=== PATIENT | female | born 1950 | race Caucasian/White ===

== ENCOUNTER 2024-06-11 14:12 | Emergency (ER) | payer MEDICARE, SELFPAY ==
[2024-06-11 14:16] VITALS: BP 144/61; PULSE 85; RESP 18; TEMP 36.2; O2SAT 98; BMI 27.3
--- NOTE | 2024-06-11 14:39 | CT_ITS ---
STUDY: CT BRAIN WITHOUT CONTRAST REASON FOR EXAM: Female, 73 years old. headache for few weeks RADIATION DOSAGE (If Supplied By Facility): CTDIvol = ( 44.99 ) mGy, DLP = ( 796.11 ) mGycm TECHNIQUE: Transaxial CT imaging of the brain was performed without administration of intravenous contrast material. Individualized dose optimization techniques were used for this CT. COMPARISON: No relevant priors. FINDINGS: Normal soft tissue structures. Normal calvarium. Calcific plaquing of the cavernous carotids Normal size ventricles and extra-axial spaces for the patient''s age. 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 Normal basal ganglia and thalami. Normal brainstem. Normal cerebellum. There is no intracranial hemorrhage. There are no findings of an acute ischemic infarction. Normal visualized paranasal sinuses. 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
--- NOTE | 2024-06-11 14:40 | EKG12_ITS ---
Test Reason : WEAKNSS Blood Pressure : */* mmHG Vent. Rate : 76 BPM Atrial Rate : 76 BPM P-R Int : 190 ms QRS Dur : 78 ms QT Int : 402 ms P-R-T Axes : 51 16 59 degrees QTcB Int : 452 ms Normal sinus rhythm Cannot rule out Anterior infarct , age undetermined Abnormal ECG Confirmed by Cole Mccormack ([id number]), order editor JOYCE MEDINA ([id number]) on 06/13/2024 10:59:47 AM Referred By: Confirmed By: Coel Mccormack
--- NOTE | 2024-06-11 14:41 | EX.ED.DYSGE1 ---
HPI History of Present Illness Chief Complaint: Headache Narrative Narrative: Patient is a 73-year-old female past medical history of depression, anxiety who presents to the emergency department chief complaint of headache. Patient states that she has had a headache on and off for the past 3 weeks now. She states that she has not seen her family doctor for this. States that it for started on her left side behind her eye and has remained this and she states that she always gets headaches on her left side. Patient denies any recent falls or head injuries. Patient denies any blood thinning medications. Patient states that she took naproxen prior to arrival for her headache. States that things do not improve and therefore she came here for further evaluation management. PFSH PFSH Allergy/AdvReac Type Severity Reaction Status Date / Time Penicillins Allergy Hives Verified 06/11/24 14:16 Social History Smoking Status: Unknown if ever smoked ROS ROS ED ROS Narrative Constitutional: Complains of headache as noted above denies any fevers, chills, lightness, dizziness Eyes: Denies change in vision double vision blurry vision Cardiovascular: Denies chest pain palpitation Respiratory: As denies coughing wheezing shortness of breath Abdomen: Complains of nausea denies any vomiting or diarrhea and denies any abdominal pain : Denies any urinary symptoms Neurological: Denies any numbness, weakness, tingling Musculoskeletal: Denies back pain Skin: Denies any rashes or lesions EXAM Physical Exam Narrative Exam Narrative: General: Patient lying in bed rest comfortably did not appear to be acute distress Head: Atraumatic, normocephalic Eyes: PERRL bilateral, EOMI bilateral, no conjunctival injection noted Neck: Soft, supple, trach Cardiovascular: Regular rate and rhythm no murmurs gallops rubs noted Respiratory: Clear to auscultation bilaterally no rales rhonchi or wheezes noted Abdomen: Soft, nondistended, nontender to palpation, bowel sounds present x 4 Extremities: +5/5 strength noted in the bilateral upper and lower extremities, no pedal edema on exam, radial pulses +2/4 in the bilateral upper extremities Neurological: Patient following commands knew that she was at [facility] year is 2023. Patient completed finger-nose test bilaterally for any difficulty. NIH of 0 GCS 15 Skin: Warm, dry, intact Const Vital Signs: 12/03/24 14:16 06/11/24 16:14 Temperature 97.2 F L Temperature Source Temporal Pulse Rate 85 78 Respiratory Rate 18 18 Blood Pressure 144/61 H 132/78 H Blood Pressure Mean 88 96 Pulse Ox 98 97 Oxygen Delivery Method Room Air Room Air MDM MDM MDM Narrative Medical decision making narrative: Patient is a 73-year-old female who presented to the emergency department chief complaint of headache for the past several weeks. States that these headaches are waxing and waning. On the differential diagnose includes but not limited to migraine headache, cluster headache, tension headache, intracranial mass. Once workup is obtained reviewed she will be reevaluated. Patient be given IV fluids, Reglan and Tylenol. Patient's CBC was reviewed and was largely unremarkable no evidence leukocytosis white blood count normal at 5.7, hemoglobin was 14.7, platelet count normal at 268. Patient sodium normal 140, potassium normal 3.9, creatinine was 1.03 there is nothing to compare to based on previous blood draws as there is no other blood draws to compare to, AST and ALT were [address] head and brain without contrast was reviewed showed small old bilateral parietal lobe infarcts no evidence for obstructive hydrocephalus mass or acute bleed. Patient's EKG was reviewed and independently interpreted by myself which showed sinus rhythm with a rate of 76 bpm. On reevaluation of the patient and she is feeling better she would like to go home at this point time. Patient was advised to continue to take Tylenol ibuprofen [id number] for her headache control. She was advised to follow-up with her primary care physician outpatient setting. She is encouraged return with worsening symptoms or concerns. All question concerns answered she was discharged home in stable condition. Lab Data Labs: Laboratory Results - last 24 hr 06/11/24 15:32 WBC 5.7 RBC 4.76 Hgb 14.7 Hct 44.5 MCV 93.5 MCH 30.9 MCHC 33.0 RDW Std Deviation 41.5 RDW Coeff of Joy 12.1 Plt Count 268 MPV 8.2 Immature Gran % (Auto) 0.400 Neut % (Auto) 57.8 Lymph % (Auto) 32.2 Darke % (Auto) 7.6 Eos % (Auto) 1.1 Baso % (Auto) 0.9 Absolute Neuts (auto) 3.3 Absolute Lymphs (auto) 1.83 Nucleated RBC % 0 Sodium 140 Potassium 3.9 Chloride 107 Carbon Dioxide 31.0 Anion Gap 2 L BUN 30 H Creatinine 1.03 H Estim Creat Clear Calc 45.68 Est GFR (MDRD) Af Amer 67 Est GFR (MDRD) Non-Af 56 L BUN/Creatinine Ratio 29.1 H Glucose 99 Calcium 9.7 Total Bilirubin 0.60 AST 17 ALT 26 Alkaline Phosphatase 106 Total Protein 7.7 Albumin 4.4 Globulin 3.3 Albumin/Globulin Ratio 1.3 Radiography Diagnostic Testing: Clinical Impression(s) from Imaging Studies Brain CT 06/11/24 14:39 IMPRESSION: 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 Return with worsening symptoms or other concerns. Use ibuprofen and Tylenol for headache control Ensure adequate hydration with water. Print Language: R[place] Disposition Disposition: Home, Self Care
[2024-06-11] MEDS: 0.9% Normal Saline (1000mL) 1,000 ML 999 ML IV (15:29)
[2024-06-11] MEDS: Acetaminophen 500 MG Tablet 1000 MG PO (15:29)
[2024-06-11] MEDS: Metoclopramide 10 MG/2 ML Vial IV (15:29)
[2024-06-11 15:38] LABS: Absolute Lymphocyte Count 1.83 X10^3/uL (0.83-4.51); Absolute Neutrophil Count 3.3 X10^3/uL (2.0-7.7); Basophil# 0.05 X10^3/uL; Basophil% 0.9 % (0-1); Eosinophil# 0.06 X10^3/uL; Eosinophils% 1.1 % (0-5); Hematocrit 44.5 % (37-47); Hemoglobin 14.7 g/dL (12.0-15.0); Lymphocyte # 1.83 X10^3/ul (0.83-4.51); Lymphocyte % 32.2 % (19-41); Mean Corpuscular Hgb 30.9 pg (27.0-32.0); Mean Corpuscular Volume 93.5 fL (81-99); Mean Platelet Vol. 8.2 fl (6.2-12.0); Monocyte# 0.43 X10^3/uL; Monocyte% 7.6 % (0-10); NRBC Flagged by Analyzer 0 % (0-5); Neutrophil # 3.29 X10^3/uL (2.7-7.7); Neutrophil % 57.8 % (47-70); Platelet Count 268 K/mm3 (150-450); RBC Distribution Width CV 12.1 % (11.6-14.6); RBC Distribution Width SD 41.5 fl (35.1-43.9); Red Blood Count 4.76 M/mm3 (4.2-5.4); White Blood Count 5.7 K/mm3 (4.4-11.0)
[2024-06-11 16:14] VITALS: BP 132/78; PULSE 78; RESP 18; O2SAT 97
[2024-06-11 16:31] LABS: ALB/GLOB Ratio 1.3 RATIO (0.9-2.4); AST(SGOT) 17 U/L (15-37); Alanine Aminotransfer ALT/SGPT 26 U/L (13-56); Albumin, Serum 4.4 g/dL (3.2-5.0); Alkaline Phosphatase 106 U/L (45-117); Anion Gap 2 (5-15); BUN 30 mg/dL (7-18); BUN/Creat Ratio 29.1 RATIO (10-20); Calcium,Total 9.7 mg/dL (8.5-10.1); Chloride 107 mmol/L (98-107); Creatinine, Serum 1.03 mg/dL (0.55-1.02); EST Glomerular Filtration Rate 56 mL/min (>60); Est Glom Filt Rate - Afr Amer 67 mL/min (>60); Estimated Creatinine Clearance 45.68 ml/min; Globulin 3.3 g/dL (2.2-4.2); Glucose 99 mg/dL (74-106); Potassium 3.9 mmol/L (3.5-5.1); Protein, Total 7.7 g/dL (6.4-8.2); Sodium Level 140 mmol/L (136-145)
[2024-06-11 16:44] LABS: Squamous Epithelial Cells - UA 0 SEEN /hpf (5-10)
[2024-06-11 16:53] LABS: Color, Urine Yellow (Yellow); Glucose, Dipstick Normal (Normal); Ketone-Dipstick Negative (Negative); Leukocyte Esterase-Dipstick 25 /ul (Negative); Nitrite-Dipstick Negative (Negative); Occult Blood-Urine 50 /ul (Negative); Protein-Dipstick 30 mg/dl (Negative); Specific Gravity, Urine 1.025 (1.002-1.030); Urine Clarity Clear (Clear); Urine Urobilinogen 1 mg/dl (Normal)
[2024-06-11 16:54] LABS: Urine Bilirubin Dipstick 1 mg/dL (Negative)
[2024-06-11 17:00] LABS: Bacteria 1+ /hpf (None Seen); Mucous, Urine 2+ /hpf (<or=2+); Red Blood Cells-Urine 0-5 SEEN /hpf (0-5); White Blood Cells 0-5 SEEN /hpf (0-5)
[2024-06-11 17:06] VITALS: BP 124/76; PULSE 78; RESP 16; TEMP 37.1; O2SAT 99
== END 2024-06-11 17:07 | disposition home or self-care (01) ==
PROVIDERS: Emergency Provider Emergency Medicine; PCP Nurse Practitioner Family; Visit Provider Emergency Medicine
DX: R51.9 Headache, unspecified (principal); F41.9 Anxiety disorder, unspecified; Z86.73 Personal history of transient ischemic attack (TIA), and cerebral infarction without residual deficits; F32.A Depression, unspecified
CPT/HCPCS: 70450; 80053; 81001; 85025; 93005; 96361; 96374; 99283; A4216

== ENCOUNTER → 2025-03-24 | Outpatient (CLI) | payer MEDICARE, SELFPAY ==
[2025-03-24 18:27] LABS: Ferritin 92 ng/mL (22-378); Iron 96 ug/dL (50-170); Magnesium 2.2 mg/dL (1.5-2.2); Vitamin B12 264 pg/mL (180-914)
[2025-03-26 16:09] LABS: Folate, Hemolysate Test 295.0 ng/mL (Not Estab.); Folate, RBC (Hct) Test 40.3 % (34.0-46.6); Folates, RBC Test 732 ng/mL (>498)
== END | disposition home or self-care (01) ==
LOC: MTLAB 14:19
PROVIDERS: PCP Nurse Practitioner Family; Referring Provider Psychiatry & Neurology Neurology; Visit Provider Psychiatry & Neurology Neurology
DX: G57.93 Unspecified mononeuropathy of bilateral lower limbs (principal); G25.2 Other specified forms of tremor; G25.81 Restless legs syndrome
CPT/HCPCS: 36415; 82607; 82728; 82747; 83540; 83735; 84443; 85014

== ENCOUNTER → 2025-04-04 | Outpatient (CLI) | payer MEDICARE, SELFPAY ==
--- NOTE | 2025-04-04 12:49 | MRI_ITS ---
PROCEDURE: BRAIN W/WO CONTRAST 04/04/2025 REASON FOR EXAM: TREMOR, GEORGE, ATAXIA, PRIOR CVA, FAMILY HX OF PLS TECHNIQUE: Procedure Code: [id number] Modality: MR Procedure: BRAIN W/WO CONTRAST Multiplanar and multisequence images were obtained. COMPARISON: CT dated 06/11/2024. FINDINGS: A cystic area measuring approximately 2.1 x 1.2 by 2.1 cm is noted in the posterior periphery of the left parietal lobe, demonstrating homogeneous low T1 and high T2 signal, with a thin peripheral rim of low gradient echo signal. A similar 2nd focus of signal abnormality is noted in the superior medial aspect of the left parietal lobe, measuring approximately 1.5 by 0.9 by 1.4 cm. Similarly, there is a periphery of low gradient echo signal. The aforementioned areas of peripheral low gradient echo signal likely represents blood products/hemosiderin staining. Calcification is less likely due to lack of visible calcium on the previous CT scan. Linear enhancement along the inferior medial aspect of the cystic area in the right parietal lobe likely represents vasculature, and less likely tumoral enhancement. Otherwise there is no enhancement involving either cystic area in the bilateral parietal lobes. In the adjacent white matter to these 2 lesions, there is FLAIR hyperintensity, which may represent gliosis or mild vasogenic edema. Several small scattered FLAIR hyperintense foci are noted throughout the bilateral cerebral white matter, nonspecific but probably represent very mild chronic microvascular ischemic changes. No midline shift. The ventricles are normal in size and configuration. The midline structures are intact, specifically the corpus callosum, septum pellucidum, pituitary gland, and cerebellar vermis. Cervicomedullary junction appears unremarkable. Fluid fills the right mastoid air cells, and a few left mastoid air cells. The paranasal sinuses are clear. Evidence of bilateral cataract surgery. Diffusion-weighted images demonstrate no acute process. No MR evidence of acute ischemia. MRI/Brain W/WO Contrast IMPRESSION: 1. Cystic areas in the bilateral parietal lobes with adjacent FLAIR hyperinten sities, as described above. These cystic areas are essentially nonenhancing, although there is curvilinear enhancement along t he inferior medial aspect of the lesion in the right parietal lobe, which is likely vasculature. These probably represent foc i of encephalomalacia with adjacent gliosis, secondary to old infarctions. An alternate less likely diagnostic consideratio n is cystic neoplasms with adjacent mild vasogenic edema. Attention should be paid on follow-up imaging. 2. Several nonspecific FLAIR hyperintense foci scattered throughout the bilate ral cerebral white matter, probably representing very mild chronic microvascular ischemic changes. 3. Bilateral mastoid effusions, greater on the right. Reading Location: [id number]
--- OUTSIDE RECORDS SUMMARY | 2025-04-04 13:08 | XMS RPT_ITS | CCD ---
Author Organization [facility] CliniSyal Care Team Providers Care Farm Loan Representative Name Role Phone Christiana Krishnamurthy K Unavailable Ken Mena Unavailable Unavailable Rajesh, Daniel Ken Shaneka Attending Elsy Krishnamurthy VESSEL SCRAPPER, Christiana K Primary Care Provider SOFYA DAVE Attending Unavailabl e SELF Referring Unavailable YESSY, CHRISTIANA K Primary Care Unavailable YESSY, CHRISTIANA Consulting Unavailable YESSY, CHRISTIANA Attending Unavailable YESSY, CHRISTIANA Admitting Unavailable YESSY, CHRISTIANA Primary Care Unavailable PROVIDER, UNKNOWN Consulting Unavailable YESSY, CHRISTIANA Consulting Unavailable YESSY, CHRISTIANA Attending Unavailable YESSY, CHRISTIANA Admitting Unavailable YESSY, CHRISTIANA Primary Care Unavailable PROVIDER, UNKNOWN Consulting Unavailable YESSY, CHRISTIANA Attending Unavailable YESSY, CHRISTIANA Admitting Unavailable YESSY, CHRISTIANA Primary Care Unavailable YESSY, CHRISTIANA Consulting Unavailable PROVIDER, UNKNOWN Consulting Unavailable Yessy SUPERVISOR PAPER MACHINE-C, Christiana Primary Care Provider [phone] Yessy SUPERVISOR PAPER MACHINE-C, Christiana Referring Provider Dr. Christopher Bowens MD Attending Provider [phone] Ml SUPERVISOR PAPER MACHINE-CJulee Attending Provider Yessy SUPERVISOR PAPER MACHINE-C, Christiana Primary Care Provider Yessy SUPERVISOR PAPER MACHINE-C, Christiana Referring Provider [phone] Spencer Oliver MD Attending Provider Dr. Spencer Oliver MD Referring Provider [phone] Julee Bull Attending Unavailable Yessy SUPERVISOR PAPER MACHINE, Christiana Primary Care Unavailable Yessy SUPERVISOR PAPER MACHINE, Christiana Referring Unavailable Reginald Ventura Attending Unavailable Yessy SUPERVISOR PAPER MACHINE, Christiana Primary Care Unavailable Yessy SUPERVISOR PAPER MACHINE, Christiana Primary Care Unavailable Yessy SUPERVISOR PAPER MACHINE, Christiana Referring Unavailable Julee Bull Attending Unavailable Julee Bull Referring Unavailable Yessy SUPERVISOR PAPER MACHINE, Christiana Primary Care Unavailable Julee Bull Attending Unavailable Spencer Oliver Attending Unavailable Spencer Oliver Referring Unavailable Yessy SUPERVISOR PAPER MACHINE, [facility] Primary Care Unavailable Christopher Bowens Attending Unavailable Yessy SUPERVISOR PAPER MACHINE, [facility] Primary Care Unavailable Yessy SUPERVISOR PAPER MACHINE, Christiana Referring Unavailable Julee Bull Attending Unavailable Yessy SUPERVISOR PAPER MACHINE, Christiana Primary Care Unavailable Yessy SUPERVISOR PAPER MACHINE, Chrisitana Referring Unavailable Julee Bull Attending Unavailable Yessy SUPERVISOR PAPER MACHINE, [facility] Primary Care Unavailable Yessy SUPERVISOR PAPER MACHINE, Christiana Referring Unavailable Allergies Allergy Classification Reported Allergen(s) Allergy Type Date of Onset Reaction(s) Facility (1 source) Codeine Drug Allergy Other [facility] (1 source) Penicillin Drug Allergy [facility] (1 source) Penicillins Drug Allergy 08-06-2024 Rash [facility] (4 sources) Penicillins Allergy to substance 12-12-2024 [facility] (1 source) Penicillins Drug allergy (disorder) 03-24-2025 [facility] Repository Medications Current Medications Medication Drug Class(es) Dates Sig (Normalized) Sig (Original) atorvastatin 10 mg oral tablet (5 sources) HMG-CoA Reductase Inhibitor Start: 10-23-2024 take 1 tablet by mouth two times weekly Atorvastatin 10 mg tablet Active 10 mg PO TWICE A WEEK October 23, 2024 12:00am Start: 06-19-2024 atorvastatin ( LIPITOR) 10 mg tablet 1 Tablet every Monday and 06/19/2024 Active cholecalciferol, vitamin D3, (VITAMIN D3 ORAL) (1 source) cholecalciferol, vitamin D3, (VITAMIN D3 ORAL) Take by mouth. Active clindamycin 300 mg oral capsule (1 source) Lincosamide Antibacterial Start: 023 End: 023 take 1 capsule by mouth twice daily Cleocin HCl 300 mg oral capsule ; 1 cap(s) orally 2 times a day Quantity: 20 Refills: 0 Ordered: 08-Sep-2022 Ken Mena Start: 08-Sep-2022 End: 17-Sep-2022 Generic Substitution Allowed Comments: Finish all this medication unless otherwise directed by prescriber.Medication should be taken with plenty of water. Comment on above: Finish all this medi cation unless otherwise directed by prescriber.Medication should be taken with plenty of water. famotidine 40 mg oral tablet (5 sources) Histamine-2 Receptor Antagonist Start: take 1 tablet by mouth twice daily Famotidine 40 mg tablet Active 40 mg PO TWICE A DAY October 23, 2024 12:00am Start: 06-19-2024 take 1 tablet by randall th every twelve hours famotidine (PEPCID) 40 mg tablet Take 1 tablet by mouth every 12 hours. 06/19/2024 Active hydrOXYzine hydrochloride 25 mg oral tablet (5 sources) Antihistamine Start: 10-23-2024 take 25-50 mg by mouth at bedtime Hydroxyzine Hcl 25 mg tablet Active 25 - 50 mg PO AT BEDTIME October 23, 2024 12:00am Start: 07-15-2024 hydrOXYzine HC l (ATARAX) 25 mg tablet TAKE 1-2 Tablets EVERY DAY AT BEDTIME 07/15/2024 Active lamoTRIgine 150 mg oral tablet (5 sources) Mood Stabilizer, Anti-epileptic Agent Start: 10-23-2024 take 1 tablet by mouth twice daily Lamotrigine 150 mg tablet Active 150 mg PO TWICE A DAY October 23, 2024 12:00am Start: 07-15-2024 take 1 tablet by randall th twice daily lamoTRIgine (LAMICTAL) 150 mg tablet Take 1 (one) Tablet by mouth two times daily, max daily dose 300 Milligram 07/15/2024 Active meloxicam 7.5 mg oral tablet (5 sources) Nonsteroidal Anti-inflammatory Drug Start: 10-23-2024 take 1 tablet by mouth once daily Meloxicam 7.5 mg tablet Active 7.5 mg PO daily October 23, 2024 12:00am Start: 06-19-2024 take 1 tablet by mouth once me loxicam (MOBIC) 7.5 mg tablet Take 1 tablet by mouth every afternoon. 06/19/2024 Active propranolol hydrochloride 20 mg oral tablet (6 sources) beta-Adrenergic Valentin Start: 03-24-2025 take 1 tablet by mouth three times daily Propranolol 20 mg tablet Active 20 mg PO THREE TIMES A DAY 90 March 24, 2025 2:04pm Start: 02-20-2025 End: 03-24-2025 take 0.5 tablet by mouth once daily in the morning, then take 1 tablet by mouth once daily at bedtime, then take 1 tablet by mouth twice daily Propranolol 20 mg tablet Discontinued 20 mg PO TWICE A DAY 30 February 20, 2025 12:00am March 24, 2025 2:16pm Take 0.5 tablet (10mg) QAM and 1 tablet (20mg) QHS x1 week then increase to 1 tablet (20mg) BID Start: 01-23-2025 End: 02-20-2025 take 1 tablet by mouth once daily, then take 1 tablet by mouth twice daily Propranolol 10 mg tablet Discontinued 10 mg PO TWICE A DAY 60 January 23, 2025 12:00am February 20, 2025 2:14pm Take 1 tablet (10mg) once daily x 1 week, then increase to 1 tablet BID propylene glycol 6 mg/ml ophthalmic solution (1 source) Start: 08-06-2024 propylene glyc oL, PF, (SYSTANE COMPLETE PF) 0.6 % drop Use 1 Drop in both eyes four times daily. 20 mL 3 08/06/2024 Active traZODone hydrochloride 50 mg oral tablet (10 sources) Serotonin Reuptake Inhibitor Start: 12-12-2024 take 1 tablet by mouth at bedtime Trazodone 50 mg tablet Active 50 mg PO AT BEDTIME December 12, 2024 1:09pm Start: 10-23-2024 End: 12-12-2024 Trazodone 50 mg tablet Disco ntinued 75 mg PO AT BEDTIME October 23, 2024 12:00am December 12, 2024 1:09pm Start: 06-20-2024 traZODone (JENI YREL) 50 mg tablet TAKE 1 AND 1/2 TABLETS EVERY DAY AT BEDTIME 06/20/2024 Active traZODone 150 mg oral tablet Quantity: 0 Refills: 0 Ordered: 08-Sep-2022 Meghann Izaguirre Generic Substitution Allowed Completed/Discontinued Medications Medication Drug Class(es) Dates Sig (Normalized) Sig (Original) [id number] 200 actuat albuterol 0.09 mg/actuat metered dose inhaler (1 source) beta2-Adrenergic Agonist Start: 09-08-2022 take 2 puff(s) by inhalation twice daily as needed for cough albuterol 90 mcg/inh inhalation aerosol ; 2 puff(s) inhaled 2 times a day as needed for cough Quantity: 8.5 Refills: 0 Ordered: 08-Sep-2022 Ken Mena Start: 08-Sep-2022 Generic Substitution Allowed Comments: For inhalation only.It is very important that you take or use this exactly as directed. Do not skip doses or discontinue unless directed by your doctor.Obtain medical advice before taking any non-prescription drugs as some may affect the action of this medication.Shake well before use. Comment on above: For inhalation only. It is very important that you take or use this exactly as directed. Do not skip doses or discontinue unless directed by your doctor.Obtain medical advice before taking any non-prescription drugs as some may affect the action of this medication.Shake well before use. fluorescein sodium 2.5 mg/ml / proparacaine hydrochloride 5 mg/ml ophthalmic solution (2 sources) Diagnostic Dye, Local Anesthetic Start: 08-06-2024 End: 08-06-2024 fluorescein-propar acaine 1 Drop eye drops Start: 08-06-2024 End: 08-06-2024 1 Drop, BOTH EYES, ONCE, 1 d ose, On Mon08/06/24 at 1400, FOR THE EYE. REFRIGERATE magnesium oxide 400 mg oral tablet (4 sources) Start: 12-12-2024 End: 01-23-2025 take 1 tablet by mouth once daily Magnesium Oxide 400 mg (241.3 mg magnesium) tablet Discontinued 400 mg PO daily 30 December 12, 2024 12:00am January 23, 2025 2:37pm phenylephrine hydrochloride 25 mg/ml ophthalmic solution (2 sources) alpha-1 Adrenergic Agonist Start: 08-06-2024 End: 08-06-2024 PHENYLephrine 2.5 % 1 Drop (AK-DILATE, VIRIDIANA-SYNEPHRINE) Start: 08-06-2024 End: 08-06-2024 1 Drop, BOTH EYES, ONCE, 1 d ose, On Mon08/06/24 at 1400, FOR OPHTHALMIC USE ONLY PROTECT FROM LIGHT primidone 50 mg oral tablet (4 sources) Anti-epileptic Agent Start: 10-23-2024 End: 12-12-2024 take 1 tablet by mouth once daily Primidone (Mysoline) 50 mg tablet Discontinued 25 mg PO AT BEDTIME 30 October 23, 2024 12:00am December 12, 2024 1:09pm 1 pill p.o. nightly tropicamide 10 mg/ml ophthalmic solution (2 sources) Anticholinergic Start: 08-06-2024 End: 08-06-2024 tropicamide 1 % 1 Drop (MYDRIACYL) Start: 08-06-2024 End: 08-06-2024 1 Drop, BOTH EYES, ONCE, 1 d ose, On Mon08/06/24 at 1400, FOR THE EYE Problems Problem Classification Problem Date Documented Date Episodic/Chronic Blindness and vision defects (2 sources) Hyperopia of left eye; Translations: [Hypermetropia, left eye] 08-06-2024 Episodic Cataract (1 source) Artificial lens present; Translations: [Presence of intraocular lens] 08-06-2024 Chronic Chronic kidney disease (2 sources) Chronic kidney disease; Translations: [Chronic kidney disease, stage 3b] Onset: 12-11-2023 Disorders of lipid metabolism (2 sources) Hyperlipidemia, unspecified; Translations: [Hyperlipidemia, unspecified] Onset: 12-11-2023 Chronic Headache; including migraine (6 sources) Headache; Translations: [Headache] 06-19-2024 Episodic Headache; including migraine (2 sources) Headache; including migraine; Translations: [Headache, unspecified] Onset: 09-08-2022 Malaise and fatigue (1 source) Other malaise; Translations: [Other malaise] Onset: 09-08-2022 Episodic Nutritional deficiencies (2 sources) Vitamin D deficiency, unspecified; Translations: [Vitamin D deficiency, unspecified] Onset: 06-17-2024 Chronic Other circulatory disease (17 sources) History of cerebrovascular accident; Translations: [Personal history of transient ischemic attack (TIA), and cerebral infarction without residual deficits] 10-23-2024 Episodic Comment on above: Multiple prior strok es noted. Recent CT demonstrated strokes in bilateral parietal locations. Other circulatory disease (1 source) Personal history of transient ischemic attack (TIA), and cerebral infarction without residual deficits; Translations: [Personal history of transient ischemic attack (TIA), and cerebral infarction without residual deficits] Onset: 03-24-2025 Episodic Other eye disorders (1 source) Bilateral vitreous floaters; Translations: [Other vitreous opacities, bilateral] 08-06-2024 Chronic Other eye disorders (2 sources) Dry eyes; Translations: [Dry eye syndrome of bilateral lacrimal glands] Onset: 08-06-2024 08-06-2024 Episodic Other hereditary and degenerative nervous system conditions (17 sources) Intention tremor; Translations: [Other specified forms of tremor] 10-23-2024 Chronic Comment on above: Features appear to b e most consistent with cerebellar tremor. Other hereditary and degenerative nervous system conditions (2 sources) Restless legs; Translations: [Restless legs syndrome] 03-24-2025 Chronic Other hereditary and degenerative nervous system conditions (2 sources) Other specified forms of tremor; Translations: [Other specified forms of tremor] Onset: 03-24-2025 Chronic Other hereditary and degenerative nervous system conditions (1 source) Restless legs syndrome; Translations: [Restless legs syndrome] Onset: 03-24-2025 Chronic Other lower respiratory disease (2 sources) Cough 09-08-2022 Episodic Comment on above: COUGH Other nervous system disorders (13 sources) Bilateral peripheral neuropathy of lower limbs; Translations: [Unspecified mononeuropathy of bilateral lower limbs] 10-23-2024 Chronic Other nervous system disorders (1 source) Unspecified mononeuropathy of bilateral lower limbs; Translations: [Unspecified mononeuropathy of bilateral lower limbs] Onset: 04-01-2025 Chronic Other nervous system disorders (2 sources) Ataxic gait; Translations: [Ataxic gait] 03-24-2025 Episodic Other nervous system disorders (1 source) Ataxic gait; Translations: [Ataxic gait] Onset: 03-24-2025 Episodic Other upper respiratory infections (3 sources) Acute sinusitis; Translations: [Acute sinusitis, unspecified] Onset: 09-08-2022 09-08-2022 Episodic Unclassified (1 source) Cough, unspecified; Translations: [Cough, unspecified] Onset: 09-08-2022 Results Test Name Value Interpretation Reference Range Facil ity Folates, RBCon 03-26-2025 Fol.,Hemolysate 295.0 ng/mL Normal Not Estab. [facility] Comment on above: Performed By: #### L 3100.1725, L501.5200, L503.6550, L501.9520, L503.0106, L503.6150 ####[facility] [address] [place], [place], [id number] Folate, RBC 732 ng/mL Normal >498 [facility] Comment on above: Result Comment: Perf ormed at: - [facility] [address] [id number] Mill Feeder: Pedro Sandoval PhD, Phone: [phone] Performed By: #### L 3100.1725, L501.5200, L503.6550, L501.9520, L503.0106, L503.6150 ####[facility] [address] [place], [place], [id number] Hematocrit (Bld) [Volume fraction] 40.3 % Normal 34.0-46.6 [facility] Comment on above: Performed By: #### L 3100.1725, L501.5200, L503.6550, L501.9520, L503.0106, L503.6150 ####[facility] [address] [place], [place], [phone] Ferritinon 03-24-2025 Ferritin [Mass/Vol] 92 ng/mL Normal 22-378 [facility] Comment on above: Performed By: #### L 3100.1725, L501.5200, L503.6550, L501.9520, L503.0106, L503.6150 ####[facility] [address] [place], [place], [id number] Ironon 03-24-2025 Iron [Mass/Vol] 96 ug/dL Normal 50-170 [facility] Comment on above: Performed By: #### L 3100.1725, L501.5200, L503.6550, L501.9520, L503.0106, L503.6150 ####[facility] [address] [place], [place], [id number] Magnesiumon 03-24-2025 Magnesium [Mass/Vol] 2.2 mg/dL Normal 1.5-2.2 [facility] Comment on above: Performed By: #### L 3100.1725, L501.5200, L503.6550, L501.9520, L503.0106, L503.6150 #### [facility] [address] [place], [address] Neurology Visit Reporton Neurology Visit Report [facility] [address] [place] [address] OFFICE VISIT Date of Service: 03/24/25 MR#: [id number] Acct: [id number] Name: MARLA DOLAN Rep #: [id number] : 1950 Provider: HO huizar Age/Sex: 74/F Location: [facility].BN Status: Signed HPI HPI Chief Complaint: Follow-up Details: History of present illness: Ms. Dolan is a 74-year-old right-handed female who follows with neurology for management of tremors. She established care with Dr. Bowens on 10/23/2024. Pertinent past medical history includes bipolar disorder controlled on lamotrigine. She is on trazodone, hydroxyzine, and melatonin for sleep. Patient has a longstanding history of headaches. She denies photophobia/phonophobi a. She denies nausea/vomiting. Aggravating factors tend to be increased stress/anxiety. Patient provided insight of her addiction history of benzodiazepines, narcotics, alcohol, and cigarettes. She has not used any of these substances for quite some time. She has a remote history of hemorrhagic stroke (2012), unclear mechanism. Records [place]. Most recent neuroimaging was CT brain dated June 2024 demonstrating small old bilateral parietal lobe infarcts. She has a history of restless leg syndrome, starting in her teens. There appears to be a genetic component. Onset is approximately 45 minutes after she lays down in bed. There is some augmentation of symptoms occasionally affecting her arms as well. She also has neuropathy present in the bilateral feet that is not a pressing issue for the patient at this time. She presented to neurology with a progressive bilateral hand tremor, right greater than left, cerebellar in nature on exam. Tremor is high-frequency, moderate amplitude. Patient also described an internal tremor of her chest. Patient indicates that she has had tremor for approximately 7 years. Previously, her tremor was not severe enough to warrant treatment; however, patient now states that her tremor causes her to break dishes. She also has difficulty cutting her food and feeding herself. Patient lives alone. Patient is mobile and able to ambulate although she indicates she falls approximately 4 times per year. Given that her tremor is now interfering with her ADLs, treatment was pursued. Primidone and magnesium oxide were not tolerated due to GI intolerance. She was initiated on propranolol in January 2025. Family history appears to be negative for Parkinson's disease or essential tremor. She reports her father had primary lateral sclerosis, which was cause of in his case. Interim history: Patient presents to neurology today 03/24/2025 for a 6-week follow-up. She was last seen by myself on 02/20/2025. At her last appointment, propranolol 10mg BID was increased to 20mg BID for management of tremor. She is here today to assess the efficacy/tolerability of this treatment. Patient is tolerating propranolol with no reported adverse effects. BP 144/76 and heart rate 67 bpm. She denies any dizziness or lightheadedness. Her tremor is marginally improved. Her gait is ataxic and she has had several near falling episodes. This has been ongoing and present prior to propranolol initiation. She reports chronic tinnitus and mild neuropathy in her feet so it is unclear if this is a cerebellar, vestibular, or sensory ataxia or a combination of the such. She has dysmetria in her upper extremities, left worse than right. Her tremor however is worse on the right. ROS: Per HPI, essentially unchanged. She denies any dizziness or lightheadedness. She denies any falls since her previous visit. She currently has a mild generalized headache without photophobia, phonophobia, or nausea/vomiting. PHYSICAL EXAM: Constitutional: Well-developed, well-nourished right-handed female in no acute distress. She is hard of hearing but does not wear hearing aids. Psych: Cooperative. Judgement and insight good. Respiratory: Normal effort. Symmetric chest movement. Clear to auscultation bilaterally. Cardio: Regular rate and rhythm. No auscultated murmurs. No auscultated carotid bruits. Neurological exam: Mental status: Alert and awake. She occasionally has blocks in her speech and has difficulty word finding but she has good comprehension. There is a mild vocal tremor. Phonation normal; no dysarthria. Cerebellum: No nystagmus; no gaze palsies identified. She has dysmetria; [id number] maneuvers are uncoordinated partly due to kinetic tremor. Rapid finger tapping test is with normal amplitude but with decreased speed, left worse than right. There is presence of a bilater (more content not included)... Normal [facility] Thyroid Stim Hormone (TSH)on 03-24-2025 TSH 2.020 uIU/mL Normal 0.300-4.200 [facility] Comment on above: Performed By: #### L 3100.1725, L501.5200, L503.6550, L501.9520, L503.0106, L503.6150 #### [facility] [address] [place], [address] Vitamin B12on 03-24-2025 Cobalamin (Vitamin B12) [Mass/Vol] 264 pg/mL Normal 180-914 [facility] Comment on above: Performed By: #### L 3100.1725, L501.5200, L503.6550, L501.9520, L503.0106, L503.6150 #### [facility] [place], [address] Neurology Visit Reporton Neurology Visit [facility] [address] [place] [address] OFFICE VISIT Date of Service: 02/20/25 MR#: [id number] Acct: [id number] Name: MARLA DOLAN Rep #: [id number] : 1950 Provider: HO huizar Age/Sex: 74/F Location: [facility] Status: Signed HPI HPI Chief Complaint: Follow-up Details: History of present illness: Ms. Dolan is a 74-year-old right-handed female who follows with neurology for tremors. She established care with Dr. Bowens on 10/23/2024. Pertinent past medical history includes bipolar disorder controlled on lamotrigine. She is on trazodone for sleep. She has a remote history of stroke with most recent CT brain dated June 2024 demonstrating small old bilateral parietal lobe infarcts. 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 Patient also provided insight of her addiction history of benzos, narcotics, alcohol, and cigarettes. She has not used any of these substances for quite some time. Family history appears to be negative for Parkinson's disease or essential tremor. Her father apparently had a neuromuscular disease similar to ALS which was cause of in his case. She presented to neurology with a progressive bilateral hand tremor, right greater than left, cerebellar in nature on exam. Tremor is high-frequency, moderate amplitude. Patient also described an internal tremor of her chest. Patient indicates that she has had tremor for approximately 7 years. Previously, her tremor was not severe enough to warrant treatment; however, patient now states that her tremor causes her to break dishes. She also has difficulty cutting her food and feeding herself. Patient lives alone. Patient is mobile and able to ambulate although she indicates she falls approximately 4 times per year. Her gait is ataxic. Given that her tremor is interfering with her ADLs, treatment was pursued. Primidone was originally prescribed but patient discontinued due to GI intolerance. Magnesium oxide was also trialed with subsequent GI upset. Interim history: Patient presents to neurology today 02/20/2025 for a 1 month follow-up visit. She was last seen by myself on 01/23/2025. At her last appointment, propranolol 10mg BID was initiated for management of tremor. She is here today to assess the efficacy of this treatment. Patient is tolerating propranolol with no reported adverse effects. BP 115/71 and heart rate 61 bpm. She denies any dizziness or lightheadedness. Her tremor is essentially unchanged since her previous visit. ROS: Per HPI, essentially unchanged. She denies any dizziness or lightheadedness. She denies any falls since her previous visit. PHYSICAL EXAM: Constitutional: Well-developed, well-nourished right-handed female in no acute distress. She is hard of hearing but does not wear hearing aids. Psych: Cooperative. Judgement and insight good. Respiratory: Normal effort. Symmetric chest movement. Clear to auscultation bilaterally. Cardio: Regular rate and rhythm. No auscultated murmurs. Neurological exam: Mental status: Alert and awake. Speech is fluent with good comprehension. There is a mild vocal tremor. Phonation normal. Normal repetition, expression, and naming. Cerebellum: No nystagmus. She has dysmetria; xhalia-my-chqf maneuvers are uncoordinated partly due to kinetic tremor. Rapid finger tapping test is with normal amplitude but with decreased speed, left worse than right. There is presence of a bilateral high-frequency moderate amplitude hand tremor, right greater than left. Tremors are present both at rest and with action. Gait/Stance: Posture is normal. Gait is ataxic. She does not turn en bloc. Assessment and Plan Assessment and Plan (1) Cerebellar tremor: Status: Chronic (2) History of stroke: Status: Chronic (3) Neuropathy of both feet: Status: Suspected Medications: New propranolol Take 0.5 tablet (10mg) QAM and 1 tablet (20mg) QHS x1 week then increase to 1 tablet (20mg) BID 20 mg PO BID 30 tabs 1RF Discontinued propranolol Take 1 tablet (10mg) once daily x 1 week, then increase to 1 tablet BID Discontinued Reason: Order Changed 10 mg PO BID 60 tabs 1RF Plan ASSESSMENT: Features appear to be most consistent with cerebellar tremor. Due to the interference with her ADLs, pharmacotherapy was pursued with goals of tremor reduction of 50%. Both primidone 25mg daily and magnesium oxide 400mg daily were not tolerated due to GI intolerance and were subsequently (more content not included)... Normal [facility] Neurology Visit Reporton Neurology Visit Report [facility] [address] [place] [address], [address] [place] [address] OFFICE VISIT Date of Service: 01/23/25 MR#: [id number] Acct: [id number] Name: MARLA DOLAN Rep #: [id number] : 1950 Provider: HO huizar Age/Sex: 74/F Location: [facility] Status: Signed HPI HPI Details: History of present illness: Ms. Dolan is a 74-year-old right-handed female who follows with neurology for tremors. She established care with Dr. Bowens on 10/23/2024. Pertinent past medical history includes bipolar disorder controlled on lamotrigine. She is on trazodone for sleep. She has a remote history of stroke with most recent CT brain dated June 2024 demonstrating small old bilateral parietal lobe infarcts. 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 Patient also provided insight of her addiction history of benzos, narcotics, alcohol, and cigarettes. She has not used any of these substances for quite some time. Family history appears to be negative for Parkinson's disease or essential tremor. Her father apparently had a neuromuscular disease similar to ALS which was cause of in his case. She presented to neurology with a progressive bilateral hand tremor, right greater than left, cerebellar in nature on exam. Tremor is high-frequency, moderate amplitude. Patient also described an internal tremor of her chest. Patient indicates that she has had tremor for approximately 7 years. Previously, her tremor was not severe enough to warrant treatment; however, patient now states that her tremor causes her to break dishes. She also has difficulty cutting her food and feeding herself. Patient lives alone. Patient is mobile and able to ambulate although she indicates she falls approximately 4 times per year. Her gait is ataxic. Given that her tremor is interfering with her ADLs, treatment was pursued. Primidone was originally prescribed but patient discontinued due to GI intolerance. Interim history: Patient presents to neurology today 01/23/2025 for a 6-week follow-up visit. She was last seen by myself on 12/12/2024. At her last appointment, magnesium oxide 400 mg was initiated given her concurrent complaints of restless leg and muscle spasms. She is here today to assess the efficacy of this treatment. Magnesium oxide 400 mg was not of benefit to the patient. Although she is not completely certain, she believed that it caused GI upset. Patient wishes to try an alternative medication. Propranolol 10 mg twice daily will be initiated. Patient is to take once daily for the first week before increasing to twice daily. She has no history of asthma/bronchospasms. The goal is to have a 50% reduction in her tremor as complete resolution is unlikely. ROS: Per HPI, essentially unchanged PHYSICAL EXAM: Constitutional: Well-developed, well-nourished right-handed female in no acute distress. She is hard of hearing but does not wear hearing aids. Psych: Cooperative. Judgement and insight good. Respiratory: Normal effort. Symmetric chest movement. Clear to auscultation bilaterally. Cardio: Regular rate and rhythm. No auscultated murmurs. Neurological exam: Mental status: Alert and awake. Speech is fluent with good comprehension. There is a mild vocal tremor. Phonation normal. Normal repetition, expression, and naming. Cerebellum: No nystagmus. She has dysmetria; ywujgz-zj-[id number] maneuvers are uncoordinated partly due to kinetic tremor. Rapid finger tapping test is with normal amplitude but with decreased speed, left worse than right. There is presence of a bilateral high-frequency moderate amplitude hand tremor, right greater than left. Tremors are present both at rest and with action. Motor: Muscle bulk and tone are normal. Hands are arthritic. There is no cogwheel rigidity present in the wrist. No bradykinesia noted. Gait/Stance: Posture is normal. Gait is ataxic. She does not turn en bloc. Assessment and Plan Assessment and Plan (1) Cerebellar tremor: Status: Chronic Plan: Features appear to be most consistent with cerebellar tremor. Due to the interference with her ADLs, pharmacotherapy was pursued with goals of tremor reduction of 50%. Both primidone 25 mg daily and magnesium oxide 400 mg daily were not tolerated due to GI intolerance and subsequently discontinued. Propranolol will be initiated. Plan: ??? Initiate propranolol 10 mg twice daily (take once daily for 1 week then increase to twice daily) ??? Consider further neuroimaging (2) History of stroke: Status: Chronic Plan: Multiple prior strokes noted. Recent CT brain (June (more content not included)... Normal [facility] Neurology Visit Reporton Neurology Visit Report [facility] [address], [address] [place] [address] OFFICE VISIT Date of Service: 12/12/24 MR#: [id number] Acct: [id number] Name: MARLA DOLAN Rep #: [id number] : 1950 Provider: HO huizar Age/Sex: 74/F Location: [facility]. Status: Signed HPI HPI Details: Ms. Dolan is a 74-year-old right-handed female who follows with neurology for tremors. She established care with Dr. Bowens on 10/23/2024. She was referred 08/14/2024 by ALLEN Krishnamurthy with [facility] in [place] for evaluation and treatment of tremors. Patient indicates that she has had tremor for about 7 years. About 1 to 2 years ago she presented to a neurologist for evaluation who indicated that her tremor was not severe enough to warrant treatment. Patient now states that her tremor causes her to break dishes and that she has difficulty cutting her food and feeding herself. She does live alone. Because of the progression of tremor right hand greater than left patient would like to receive some form of treatment for parkinsonian-like tremor. Patient is mobile and able to ambulate although she indicates she has fallen 3 times in the past 9 months. Patient does have bipolar disorder and has been receiving treatment for that for some time. Lamotrigine seems to be a drug of choice in controlling her manic depressive illness. Patient is on trazodone for sleep at night. Family history appears to be negative for Parkinson's disease or essential tremor/familial tremor. Her father apparently had a neuromuscular disease similar to ALS which was cause of in his case. Patient has remote history of small old bilateral parietal lobe infarcts as evident on CT brain imaging from June 2024. She also has neuropathy present in the bilateral feet. Interim history: Patient presents by herself today for a 3-month follow-up visit. She was last seen 10/23/[address] Bowens to establish care for tremor. She originally presented with a progressive bilateral hand tremor, right greater than left, cerebellar in nature on exam. Tremor was high-frequency, moderate amplitude. Patient also described an internal tremor of her chest. Her tremor began to interfere with her ADLs. Primidone 25 mg nightly was initiated at this visit. Patient discontinued primidone due to GI intolerance. On today's exam, the tremor is the same as described above. Pharmacological options were discussed including propranolol and magnesium oxide. Given her other complaints of restless leg and muscle spasms, treatment with magnesium oxide 400 mg daily will be initiated. ROS: As per HPI PHYSICAL EXAM: Constitutional: Well-developed, well-nourished right-handed female in no acute distress. Psych: Cooperative. Judgement and insight good. Respiratory: Normal effort. Symmetric chest movement. Clear to auscultation bilaterally. Cardio: Regular rate and rhythm. No auscultated murmurs. Neurological exam: Mental status: Alert and awake. Speech is fluent with good comprehension. Cerebellum: No nystagmus. No dysmetria; normal cyfzyp-ai-ptzh maneuvers. Rapid finger tapping test normal with normal amplitude and speed. Motor: Muscle bulk and tone are normal. There are no observed fasciculations. There is presence of a bilateral hand tremor, right slightly greater than left, of high-frequency moderate amplitude. Tremors present at rest and with action. There is no cogwheel rigidity present. No bradykinesia noted. Gait/Stance: Posture is normal. Gait is slightly ataxic but has normal stride length and good arm swing bilaterally. She does not turn en bloc. Assessment and Plan Assessment and Plan (1) Cerebellar tremor: Status: Chronic Plan: Features appear to be most consistent with cerebellar tremor. Primidone 25 mg daily was not tolerated due to GI intolerance and was subsequently discontinued. 1. Initiate magnesium oxide 400 mg daily 2. Return to neurology clinic for reassessment in 6 weeks. 3. Consider propranolol 10 mg twice daily if no improvement with magnesium supplementation. (2) History of stroke: Status: Chronic Comment: Multiple prior strokes noted. Recent CT demonstrated strokes in bilateral parietal locations. Plan: 1. Nonactionable at this time (3) Neuropathy of both feet: Status: Suspected Plan: Patient stated that she had normal feeling in both feet. Patient's chart indicates neuropathy in both feet. Problem apparently is stable. 1. No new action per neurology at this point. Medications: New magnesium oxide 400 mg PO QDAY 30 tabs 1RF Intake Vital Signs 10/23/24 13:12 12/12/24 (more content not included)... Normal [facility] CBC (NO DIFF)on 12-05-2024 CBC panel Auto (Bld) Normal [facility] Comment on above: Result Comment: CBC( WITHOUT DIFFERENTIAL) Performed By: #### 2 [id number] #### [facility],[address] [place], [place] [id number] Erythrocyte distribution width (RBC) [Ratio] 12.9 % Normal 12.0 - 15.6 [facility] Comment on above: Performed By: #### 2 18736 #### [facility],[address] [place] [address]14 Hematocrit (Bld) [Volume fraction] 42.7 % Normal 34.0 - 46.0 [facility] Comment on above: Performed By: #### 2 14854 #### [facility],[address] [place], [place] [id number] Hemoglobin (Bld) [Mass/Vol] 14.9 g/dL Normal 12.0 - 16.0 [facility] Comment on above: Performed By: #### 2 13143 #### [facility],[address] [place] [address] 04599 MCH (RBC) [Entitic mass] 33 pg Normal 27 - 33 [facility] Comment on above: Performed By: #### 2 72194 #### [facility],[address] [place] [address]15 MCHC 35 X10 3 Normal 32 - 36 [facility] Comment on above: Performed By: #### 2 48150 #### [facility],[address] [place] [address] 76250 MCV (RBC) [Entitic vol] 94 fL Normal 80 - 99 [facility] Comment on above: Performed By: #### 2 37441 #### [facility],[address] [place] [address] 47849 PLATELET 297 x10EE3/UL Normal 150 - [address] [facility] Comment on above: Performed By: #### 2 89265 #### [facility],[address] [place] [address] 15327 Platelet mean volume (Bld) [Entitic vol] 7.2 fL Normal 6.6 - 10.5 [facility] Comment on above: Performed By: #### 2 12226 #### [facility],[address] [place] [address] 28048 RBC 4.54 x 10EE6/UL Normal 4.10 - 5.30 [facility] Comment on above: Performed By: #### 2 71304 #### [facility],[address] [place] [address]4330 WBC 5.5 x 10EE3/UL Normal 4.5 - 10.8 [facility] Comment on above: Performed By: #### 2 93721 #### [facility],[address] [place] [address]64 CMP with eGFRon 12-05-2024 AGE 74 years Normal [facility] Comment on above: Performed By: #### 2 33851 #### [facility],[address] [place] [address] 88684 Albumin [Mass/Vol] 4.6 g/dL Normal 3.4 - 5.0 [facility] Comment on above: Performed By: #### 2 62202 #### [facility],[address] [place] [address] 57953 Albumin/Globulin [Mass ratio] 1.6 {ratio} Normal 0.9 - 1.6 [facility] Comment on above: Performed By: #### 2 17375 #### [facility],[address] [place] [address] 01554 ALK PHOS 109 U/L Normal 46 - 116 [facility] Comment on above: Performed By: #### 2 48520 #### [facility],[address] [place] [address] 03857 ALT [Catalytic activity/Vol] 29 U/L Normal 16 - 63 [facility] Comment on above: Performed By: #### 2 20671 #### [facility],[address] [place] [address] 49928 Anion gap [Moles/Vol] 12 mmol/L Normal 10 - 20 [facility] Comment on above: Performed By: #### 2 02105 #### [facility],[address] [place] [address] 33658 AST [Catalytic activity/Vol] 20 U/L Normal 13 - 39 [facility] Comment on above: Performed By: #### 2 69683 #### [facility],[address] [place] [address] 24430 B/C RATIO 26 ratio Normal 0 - 30 [facility] Comment on above: Performed By: #### 2 99996 #### [facility],[address] [place] [address] 75137 Bilirubin [Mass/Vol] 0.5 mg/dL Normal 0.2 - 1.0 [facility] Comment on above: Performed By: #### 2 52245 #### [facility],[address] [place] [address] 94085 Calcium [Mass/Vol] 9.9 mg/dL Normal 8.5 - 10.1 [facility] Comment on above: Performed By: #### 2 02843 #### [facility],[address] [place] [address] 40905 Chloride [Moles/Vol] 104 mmol/L Normal 98 - 107 [facility] Comment on above: Performed By: #### 2 57195 #### [facility],[address] [place] [address] 80526 CMP with eGFR Normal [facility] Comment on above: Result Comment: COMP REHENSIVE METABOLIC PANEL Performed By: #### 2 85448 #### [facility],[address] [place] [address] 93909 CO2 [Moles/Vol] 30.4 mmol/L Normal 21.0 - 32.0 [facility] Comment on above: Performed By: #### 2 37028 #### [facility],[address] [place] [address] 23893 Creatinine [Mass/Vol] 0.94 mg/dL Normal 0.55 - 1.02 [facility] Comment on above: Performed By: #### 2 86297 #### [facility],[address] [place] [address] 03182 eGFR 58 ML/MINUTE Low 60 - 999 [facility] Comment on above: Performed By: #### 2 95272 #### [facility],[address] [place] [address] 01068 GFR/1.73 sq M.predicted among non-blacks MDRD (S/P/Bld) [Vol rate/Area] mL/min/{1.73_m2} Normal 60 - 999 [facility] Comment on above: Result Comment: ACCO RDING TO THE NATIONAL KIDNEY DISEASE EDUCATION PROGRAM(NKDE), A NORMAL eGFR IS A VALUE GREATER THAN OR EQUAL TO 60 ML/MIN/1.73 SQ METERS. CHRONIC KIDNEY DISEASE: <60mL/MIN/1.73 SQ METERS KIDNEY FAILURE: <15mL/MIN/1.73 SQ METERS THIS TEST SHOULD ONLY BE USED FOR PATIENTS 18 YEARS OF AGE AND OLDER. Performed By: #### 2 69705 #### [facility],[address] [place] [address] 25767 Globulin (S) [Mass/Vol] 2.9 g/dL Normal 1.5 - 3.8 [facility] Comment on above: Performed By: #### 2 35401 #### [facility],[address] [place] [address] 06441 Glucose [Mass/Vol] 110 mg/dL High 74 - 106 [facility] Comment on above: Performed By: #### 2 30887 #### [facility],[address] [place] [address] 02219 Potassium [Moles/Vol] 4.1 mmol/L Normal 3.5 - 5.1 [facility] Comment on above: Performed By: #### 2 18431 #### [facility],[address] [place] [address] 76697 Protein [Mass/Vol] 7.5 g/dL Normal 6.4 - 8.2 [facility] Comment on above: Performed By: #### 2 80908 #### [facility],[address] [place] [address] 99913 Sodium [Moles/Vol] 142 mmol/L Normal 136 - 145 [facility] Comment on above: Performed By: #### 2 58319 #### [facility],[address] [place] [address] 77188 Urea nitrogen [Mass/Vol] 24 mg/dL High 7 - 18 [facility] Comment on above: Performed By: #### 2 19403 #### [facility],[address] [place] [address] 48641 VITAMIN D, 25 HYDROXYon 05-2 VitD 64.70 ng/mL Normal 30.00 - 100 [facility] Comment on above: Result Comment: 25-O HD3 indicates both endogenous production and supplementation. 25-OHD2 is an indicator of exogenous sources, such as diet or supplementation. Therapy is based on measurement of Total 25-OHD, with levels <20 ng/mL indicative of Vitamin D deficiency, while levels between 20 ng/mL and 30 ng/mL suggest insufficiency. Optimal levels are >=30ng/mL. Vitamin D, 25-OH D3 Not Established Vitamin D, 25-OH D2 Not Established Performed By: #### 2 72965 #### [facility],[address] [place] [address]69 Neurology Visit Reporton Neurology Visit Report [facility] [address] [place] [address], [address] [place] [address] OFFICE VISIT Date of Service: 10/23/24 MR#: [id number] Acct: [id number] Name: MARLA DOLAN Rep #: [id number] : 1950 Provider: Dr. Christopher workman MD Age/Sex: 74/F Location: [facility] Status: Signed HPI HPI Chief Complaint: Establish Care Details: The patient is a 74-year-old right handed female who [facility]. She was referred 08/14/2024 by ALLEN Krishnamurthy with [facility] in [place] for evaluation and treatment of tremors. This patient presents for evaluation of tremor by herself. Patient is able to provide information on her own behalf. Patient indicates that she has had tremor for about 7 years. About 1 to 2 years ago she presented to a neurologist for evaluation who indicated that her tremor was not severe enough to warrant treatment. Patient now states that her tremor causes her to break dishes and that she has difficulty cutting her food and feeding herself. She does live alone. Because of the progression of tremor right hand greater than left patient would like to receive some form of treatment for parkinsonian-like tremor. Patient is mobile and able to ambulate although she indicates she has fallen 3 times in the past 9 months. Patient does have bipolar disorder and has been receiving treatment for that for some time. Lamotrigine seems to be a drug of choice in controlling her manic depressive illness. Patient is on trazodone for sleep at night. Family history appears to be negative for Parkinson's disease or essential tremor/familial tremor. Her father apparently had a neuromuscular disease similar to ALS which was cause of in his case. ROS: General: No recent viral illnesses HEENT: No head trauma. She has had recent cataract removal with placement of IOLs. Vision intact. Hearing intact. No epistaxis Respiratory: No hemoptysis. No difficulty with respiration. Cardiac: No chest pain or palpitations. Abdomen: Reflux noted. Does not vomit blood or passed blood in stool : No hematuria Extremities: Polyarticular arthritis without evidence of trauma. Skin: No rashes noted. Neurologic: Patient indicates remote history of stroke. Exam Const Other: BP 132/78 pulse 78 respiration 16 temperature 97.8 O2 sat 97%. BMI is 27.8%. General appearance is that a well-developed well-nourished female resting quietly in chair. HEENT: Normocephalic. Conjunctiva clear. Patient does wear glasses. No epistaxis noted. 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 Skin: Intact on exposed areas. Neurologic examination: Mental status: Awake alert oriented to person place day month year. Memory testing shows recall 2 out of 3 objects. Language showed normal medical receptionist biller expression repetition naming. Insight and judgment appear to be adequate. Mood appeared appropriate. CN II-XII: Pupils are equal round about 3 mm. I could not tell if they were reactive. IOLs present. Fundi not visualized. Extraocular muscles showed normal eye movement. No nystagmus. Motor and sensory function of face was symmetric and normal. Patient did have intact facial expression. Hearing was intact. Swallowing phonation tongue appeared normal. Motor exam: Symmetric strength noted. Patient had some limitations in lifting arms in abduction and to extend arms overhead likely due to arthritic change in shoulders. Patient was able to stand and rise to her standing position without assistance. Patient appeared to be likely deconditioned with regard to the proximal muscles of the hip. Cerebellar testing: Patient did have a high-frequency moderate amplitude tremor of hands right greater than left. Patient stated that she could feel shaking inside her chest at times. No cogwheeling present. No rigidity present. No bradykinesia noted. Reflexes: 1+ at biceps. 2+ at knees. Babinski not checked. Sensory exam was intact to tactile and vibratory sense all 4 extremities. Station shows that on Romberg she wavers she is somewhat unstable. Gait was fluid and without hesitation. Patient was able to turn normally without difficulty. Assessment and Plan Assessment and Plan (1) Cerebellar tremor: Status: Chronic Comment: Features appear to be most consistent with cerebellar tremor. Plan: 1. Mysoline 25 mg p.o. daily at bedtime. 2. Return to neurology clinic for reassessment in 3 months. (2) History of stroke: Status: Chronic Comment: Multiple prior strokes noted. Recent CT demonstrated strokes in bilateral parietal locations. Plan: 1. Nonactionable at this time (3) Neuropathy of both feet: Status: Suspected Comment: Patient stated that (more content not included)... Normal [facility] LIPID PROFILEon 06-17-2024 Cholesterol [Mass/Vol] 239 mg/dL Normal 0 - 240 [facility] Comment on above: Performed By: #### 2 58047 #### [facility],[address] [place] [address] 08132 Cholesterol in HDL [Mass/Vol] 76 mg/dL High 40 - 60 [facility] Comment on above: Performed By: #### 2 11714 #### [facility],[address] [place] [address] 00166 Cholesterol in LDL [Mass/Vol] 141 mg/dL High 0 - 129 [facility] Comment on above: Performed By: #### 2 56028 #### [facility] [facility],[address] [place] [address]12 Cholesterol.total/C holesterol in HDL [Mass ratio] 3.1 {ratio} Normal 0.0 - 5.0 [facility] Comment on above: Performed By: #### 2 66267 #### [facility],[address] [place] [address] 65008 Lipid 1996 panel Normal [facility] Comment on above: Result Comment: LIPI D PROFILE Performed By: #### 2 57550 #### [facility],[address] [place] [address] 91755 Triglyceride [Mass/Vol] 110 mg/dL Normal 0 - 150 [facility] Comment on above: Performed By: #### 2 33624 #### [facility],[address] [place] [address] 94139 VITAMIN D, 25 HYDROXYon 12-0 VitD 81.50 ng/mL Normal 30.00 - 100 [facility] Comment on above: Result Comment: 25-O HD3 indicates both endogenous production and supplementation. 25-OHD2 is an indicator of exogenous sources, such as diet or supplementation. Therapy is based on measurement of Total 25-OHD, with levels <20 ng/mL indicative of Vitamin D deficiency, while levels between 20 ng/mL and 30 ng/mL suggest insufficiency. Optimal levels are >=30ng/mL. Vitamin D, 25-OH D3 Not Established Vitamin D, 25-OH D2 Not Established Performed By: #### 2 30563 #### [facility],[address] [place] [address] 98618 12 Lead EKGon 06-11-2024 12 Lead EKG [facility] Cardiovascular Services [address] [place] [address] 12 Lead EKG 06/11/24 1535 MR#: [id number] Acct: [id number] Name: MARLA DOLAN Rep #: [id number] : 1950 73 From: Cole Mccormack MD Attending Dr: Status: DEP ER Ordering Dr: Reginald Ventura DO Date: 06/11/24 Location: ED Sex: F C Admitted: Test Reason : WEAKNSS Blood Pressure : */* mmHG Vent. Rate : 76 BPM Atrial Rate : 76 BPM P-R Int : 190 ms QRS Dur : 78 ms QT Int : 402 ms P-R-T Axes : 51 16 59 degrees QTcB Int : 452 ms Normal sinus rhythm Cannot rule out Anterior infarct , age undetermined Abnormal ECG Confirmed by Cole Mccormack ([id number]), book editor JOYCE MEDINA ([id number]) on 06/13/2024 10:59:47 AM Referred By: Confirmed By: Cole Mccormack 06/13/24 1059 Date Cole Mccormack MD CC: SUPERVISOR PAPER MACHINE-C Christiana Krishnamurthy; Dr. Reginald Ventura DO Signed Normal [facility] Brain/Head without Contrasto n 06-11-2024 Brain/Head without Contrast [facility] Imaging Services [address] [place], [place] [address] Brain/Head without Contrast MR#: [id number] Acct: [id number] Name: MARLA DOLAN Rep #: [id number] : 1950 F 73 From: Sampson Hills MD PCP: HO Mondragon Status: REG ER Study: Brain/Head without Contrast Date of Exam: 09/30 Exam# [id number] Ordering Dr: Reginald Ventura DO [id number] STUDY: CT BRAIN WITHOUT CONTRAST REASON FOR EXAM: Female, 73 years old. headache for few weeks RADIATION DOSAGE (If Supplied By Facility): CTDIvol = ( 44.99 ) mGy, DLP = ( 796.11 ) mGycm TECHNIQUE: Transaxial CT imaging of the brain was performed without administration of intravenous contrast material. Individualized dose optimization techniques were used for this CT. COMPARISON: No relevant priors. FINDINGS: Normal soft tissue structures. Normal calvarium. Calcific plaquing of the cavernous carotids Normal size ventricles and extra-axial spaces for the patient''s age. 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 Normal basal ganglia and thalami. Normal brainstem. Normal cerebellum. There is no intracranial hemorrhage. There are no findings of an acute ischemic infarction. Normal visualized paranasal sinuses. 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 Reginald Ventura, Journeyman Power Plant Operator: Signed Normal [facility] CBC W/Diff, Automatedon 12-0 -2023 Absolute Lymph 1.83 X10 3/uL Normal 0.83-4.51 [facility] Comment on above: Performed By: #### L 500.4050, L100.0100 ####[facility] [address] [place], [address] Absolute Neut 3.3 X10 3/uL Normal 2.0-7.7 [facility] Comment on above: Performed By: #### L 500.4050, L100.0100 ####[facility] [address] [place], [address] Basophils/100 WBC (Bld) 0.9 % Normal 0-1 [facility] Comment on above: Performed By: #### L 500.4050, L100.0100 ####[facility] [address] [place], [address] Eosinophils/100 WBC (Bld) 1.1 % Normal 0-5 [facility] Comment on above: Performed By: #### L 500.4050, L100.0100 ####[facility] [address] [place], [address] Erythrocyte distribution width (RBC) [Ratio] 12.1 % Normal 11.6-14.6 [facility] Comment on above: Performed By: #### L 500.4050, L100.0100 ####[facility] [address] [place], [address] Hematocrit (Bld) [Volume fraction] 44.5 % Normal 37-47 [facility] Comment on above: Performed By: #### L 500.4050, L100.0100 ####[facility] [address] [place], [address] Hemoglobin (Bld) [Mass/Vol] 14.7 g/dL Normal 12.0-15.0 [facility] Comment on above: Performed By: #### L 500.4050, L100.0100 ####[facility] [address] [place], [address] IG% 0.400 Normal 0.0-0.9 [facility] Comment on above: Result Comment: IG% - Immature Granulocytes (promyelocytes, myelocytes and metamyelocytes) > 1% indicates that a LEFT SHIFT is Present. Performed By: #### L 500.4050, L100.0100 ####[facility] [address] [place], [address] Lymphocytes/100 WBC (Bld) 32.2 % Normal 19-41 [facility] Comment on above: Performed By: #### L 500.4050, L100.0100 ####[facility] [address] [place], [address] MCH (RBC) [Entitic mass] 30.9 pg Normal 27.0-32.0 [facility] Comment on above: Performed By: #### L 500.4050, L100.0100 ####[facility] [address] [place], [address] MCHC (RBC) [Mass/Vol] 33.0 g/dL Normal 32-36 [facility] Comment on above: Performed By: #### L 500.4050, L100.0100 ####[facility] [address] [place], [address] MCV (RBC) [Entitic vol] 93.5 fL Normal 81-99 [facility] Comment on above: Performed By: #### L 500.4050, L100.0100 ####[facility] [address] [place], [address] Monocytes/100 WBC (Bld) 7.6 % Normal 0-10 [facility] Comment on above: Performed By: #### L 500.4050, L100.0100 ####[facility] [address] [place], [address] Neutrophils/100 WBC (Bld) 57.8 % Normal 47-70 [facility] Comment on above: Performed By: #### L 500.4050, L100.0100 ####[facility] [address] [place], [address] Nucleated RBC (Bld) [#/Vol] 0 10*3/uL Normal 0-5 [facility] Comment on above: Performed By: #### L 500.4050, L100.0100 ####[facility] [address] [place], [address] Platelet mean volume (Bld) [Entitic vol] 8.2 fL Normal 6.2-12.0 [facility] Comment on above: Performed By: #### L 500.4050, L100.0100 ####[facility] [address] [place], [address] Platelets (Bld) [#/Vol] 268 10*3/uL Normal 150-450 [facility] Comment on above: Performed By: #### L 500.4050, L100.0100 ####[facility] [address] [place], [address] RBC (Bld) [#/Vol] 4.76 10*6/uL Normal 4.2-5.4 [facility] Comment on above: Performed By: #### L 500.4050, L100.0100 ####[facility] [address] [place], [address] RDW SD 41.5 fl Normal 35.1-43.9 [facility] Comment on above: Performed By: #### L 500.4050, L100.0100 ####[facility] [address] [place], [address] WBC (Bld) [#/Vol] 5.7 10*3/uL Normal 4.4-11.0 [facility] Comment on above: Performed By: #### L 500.4050, L100.0100 ####[facility] [address] [place], [address] Comprehensive Metabolic Prof ohon 06-11-2024 Albumin [Mass/Vol] 4.4 g/dL Normal 3.2-5.0 [facility] Comment on above: Performed By: #### L 500.4050, L100.0100 ####[facility] [address] [place], [address] Albumin/Globulin [Mass ratio] 1.3 {ratio} Normal 0.9-2.4 [facility] Comment on above: Performed By: #### L 500.4050, L100.0100 ####[facility] [address] [place], [address] ALK P 106 U/L Normal 45-117 [facility] Comment on above: Performed By: #### L 500.4050, L100.0100 ####[facility] [address] [place], [address] ALT [Catalytic activity/Vol] 26 U/L Normal 13-56 [facility] Comment on above: Performed By: #### L 500.4050, L100.0100 ####[facility] [address] [place], [address] AST [Catalytic activity/Vol] 17 U/L Normal 15-37 [facility] Comment on above: Performed By: #### L 500.4050, L100.0100 ####[facility] [address] [place], [address] Bilirubin [Mass/Vol] 0.60 mg/dL Normal 0.20-1.00 [facility] Comment on above: Result Comment: For patients on eltrombopag therapy, use of Dimension [place] TBIL is not recommended. Performed By: #### L 500.4050, L100.0100 ####[facility] [address] [place], [address] BUN/CRE 29.1 RATIO High 10-20 [facility] Comment on above: Performed By: #### L 500.4050, L100.0100 ####[facility] [address] [place], [address] CA,Total 9.7 mg/dL Normal 8.5-10.1 [facility] Comment on above: Performed By: #### L 500.4050, L100.0100 ####[facility] [address] [place], [address] Chloride [Moles/Vol] 107 mmol/L Normal 98-107 [facility] Comment on above: Performed By: #### L 500.4050, L100.0100 ####[facility] [address] [place], [address] CO2 [Moles/Vol] 31.0 mmol/L Normal 21.0-32.0 [facility] Comment on above: Performed By: #### L 500.4050, L100.0100 ####[facility] [address] [place], [address] Creatinine [Mass/Vol] 1.03 mg/dL High 0.55-1.02 [facility] Comment on above: Result Comment: The validity of the calculated GFR GFRAA in patients over 70 years has not been determined. Clinical correlation is essential. Performed By: #### L 500.4050, L100.0100 ####[facility] [address] [place], [address] ECRCL 45.68 ml/min Normal [facility] Comment on above: Performed By: #### L 500.4050, L100.0100 ####[facility] [address] [place], [address] EST GFR - AA 67 mL/min Normal >60 [facility] Comment on above: Result Comment: Afri can Malagasy GFR Calc Performed By: #### L 500.4050, L100.0100 ####[facility] [address] [place], [address] GAP 2 Low 5-15 [facility] Comment on above: Performed By: #### L 500.4050, L100.0100 ####[facility] [address] [place], [address] GFR/1.73 sq M.predicted among non-blacks MDRD (S/P/Bld) [Vol rate/Area] 56 mL/min/{1.73_m2} Low >60 [facility] Comment on above: Result Comment: Non- GFR Calc Performed By: #### L 500.4050, L100.0100 ####[facility] [address] [place], [address] Globulin (S) [Mass/Vol] 3.3 g/dL Normal 2.2-4.2 [facility] Comment on above: Performed By: #### L 500.4050, L100.0100 ####[facility] [address] [place], [address] Glucose [Mass/Vol] 99 mg/dL Normal 74-106 [facility] Comment on above: Performed By: #### L 500.4050, L100.0100 ####[facility] [address] [place], [address] Potassium [Moles/Vol] 3.9 mmol/L Normal 3.5-5.1 [facility] Comment on above: Performed By: #### L 500.4050, L100.0100 ####[facility] [address] [place], [address] Sodium [Moles/Vol] 140 mmol/L Normal 136-145 [facility] Comment on above: Performed By: #### L 500.4050, L100.0100 ####[facility] [address] [place], [address] T PROT 7.7 g/dL Normal 6.4-8.2 [facility] Comment on above: Performed By: #### L 500.4050, L100.0100 ####[facility] [address] [place], [address] Urea nitrogen [Mass/Vol] 30 mg/dL High 7-18 [facility] Comment on above: Performed By: #### L 500.4050, L100.0100 ####[facility] [address] [place], [address] Emergency Department Summary on 06-11-2024 Emergency Department Summary [facility] Medical Records Department [address] [place] [address] Emergency Department Summary 06/11/24 MR#: [id number] Acct: [id number] Name: MARLA DOLAN Rep #: [id number] : 1950 73 From: Reginald Ventura DO PCP: HO Mondragon Status:REG ER Location: ED HPI History of Present Illness Chief Complaint: Headache Narrative Narrative: Patient is a 73-year-old female past medical history of depression, anxiety who presents to the emergency department chief complaint of headache. Patient states that she has had a headache on and off for the past 3 weeks now. She states that she has not seen her family doctor for this. States that it for started on her left side behind her eye and has remained this and she states that she always gets headaches on her left side. Patient denies any recent falls or head injuries. Patient denies any blood thinning medications. Patient states that she took naproxen prior to arrival for her headache. States that things do not improve and therefore she came here for further evaluation management. PFSH PFSH Allergy/AdvReac Type Severity Reaction Status Date / Time Penicillins Allergy Hives Verified 06/11/24 14:16 Social History Smoking Status: Unknown if ever smoked ROS ROS ED ROS Narrative Constitutional: Complains of headache as noted above denies any fevers, chills, lightness, dizziness Eyes: Denies change in vision double vision blurry vision Cardiovascular: Denies chest pain palpitation Respiratory: As denies coughing wheezing shortness of breath Abdomen: Complains of nausea denies any vomiting or diarrhea and denies any abdominal pain : Denies any urinary symptoms Neurological: Denies any numbness, weakness, tingling Musculoskeletal: Denies back pain Skin: Denies any rashes or lesions EXAM Physical Exam Narrative Exam Narrative: General: Patient lying in bed rest comfortably did not appear to be acute distress Head: Atraumatic, normocephalic Eyes: PERRL bilateral, EOMI bilateral, no conjunctival injection noted Neck: Soft, supple, trach Cardiovascular: Regular rate and rhythm no murmurs gallops rubs noted Respiratory: Clear to auscultation bilaterally no rales rhonchi or wheezes noted Abdomen: Soft, nondistended, nontender to palpation, bowel sounds present x 4 Extremities: +5/5 strength noted in the bilateral upper and lower extremities, no pedal edema on exam, radial pulses +2/4 in the bilateral upper extremities Neurological: Patient following commands knew that she was at [facility] year is 2023. Patient completed finger-nose test bilaterally for any difficulty. NIH of 0 GCS 15 Skin: Warm, dry, intact Const Vital Signs: 06/11/24 14:16 06/11/24 16:14 Temperature 97.2 F L Temperature Source Temporal Pulse Rate 85 78 Respiratory Rate 18 18 Blood Pressure 144/61 H 132/78 H Blood Pressure Mean 88 96 Pulse Ox 98 97 Oxygen Delivery Method Room Air Room Air MDM MDM MDM Narrative Medical decision making narrative: Patient is a 73-year-old female who presented to the emergency department chief complaint of headache for the past several weeks. States that these headaches are waxing and waning. On the differential diagnose includes but not limited to migraine headache, cluster headache, tension headache, intracranial mass. Once workup is obtained reviewed she will be reevaluated. Patient be given IV fluids, Reglan and Tylenol. Patient's CBC was reviewed and was largely unremarkable no evidence leukocytosis white blood count normal at 5.7, hemoglobin was 14.7, platelet count normal at 268. Patient sodium normal 140, potassium normal 3.9, creatinine was 1.03 there is nothing to compare to based on previous blood draws as there is no other blood draws to compare to, AST and ALT were [address] head and brain without contrast was reviewed showed small old bilateral parietal lobe infarcts no evidence for obstructive hydrocephalus mass or acute bleed. Patient's EKG was reviewed and independently interpreted by myself which showed sinus rhythm with a rate of 76 bpm. On reevaluation of the patient and she is feeling better she would like to go home at this point time. Patient was advised to continue to take Tylenol ibuprofen iievep-zrx-dzefq for her headache control. She was advised to follow-up with her primary care physician outpatient setting. She is encouraged return with worsening symptoms or concerns. All question concerns answered she was discharged home in stable condition. Lab Data Labs: Laboratory Results - last 24 hr 06/11/24 15:32 WBC 5.7 RBC 4.76 Hgb 14.7 Hct 44.5 MCV 93.5 MCH 30.9 MCHC 33.0 RDW Std Deviation 41.5 RDW Coeff of Joy 12.1 (more content not included)... Normal [facility] Urinalysis, Completeon 06-11 BACTERIA 1+ /hpf Normal None Seen [facility] Comment on above: Order Comment: CLEAN CATCH Performed By: #### L 400.0001 ####[facility] [address] [place], [address] Mucus Ql (Urine sed) 2+ /hpf Normal [facility] Comment on above: Order Comment: CLEAN CATCH Performed By: #### L 400.0001 ####[facility] [address] [place], [address] RBC 0-5 SEEN Normal 0-5 [facility] Comment on above: Order Comment: CLEAN CATCH Performed By: #### L 400.0001 ####[facility] [address] [place], [address] WBC 0-5 SEEN Normal 0-5 [facility] Comment on above: Order Comment: CLEAN CATCH Performed By: #### L 400.0001 ####[facility] [address] [place], [address] EPI,SQUAMOUS 0 SEEN Normal 5-10 [facility] Comment on above: Order Comment: CLEAN CATCH Performed By: #### L 400.0001 ####[facility] [address] [place], [address] CMP with eGFRon 12-11-2023 AGE 73 years Normal [facility] Comment on above: Performed By: #### 2 51693 #### [facility],[address] [place] [address] Albumin [Mass/Vol] 4.6 g/dL Normal 3.4 - 5.0 [facility] Comment on above: Performed By: #### 2 99906 #### [facility],[address] [place] [address] Albumin/Globulin [Mass ratio] 1.6 {ratio} Normal 0.9 - 1.6 [facility] Comment on above: Performed By: #### 2 26791 #### [facility],[address] [place] [address]47 ALK PHOS 101 U/L Normal 46 - 116 [facility] Comment on above: Performed By: #### 2 18104 #### [facility],[address] [place] [address] 70683 ALT [Catalytic activity/Vol] 27 U/L Normal 16 - 63 [facility] Comment on above: Performed By: #### 2 53172 #### [facility],[address] [place] [address] Anion gap [Moles/Vol] 15 mmol/L Normal 10 - 20 [facility] Comment on above: Performed By: #### 2 28797 #### [facility],[address] [place] [address] AST [Catalytic activity/Vol] 24 U/L Normal 13 - 39 [facility] Comment on above: Performed By: #### 2 09498 #### [facility],[address] [place] [address] B/C RATIO 24 ratio Normal 0 - 30 [facility] Comment on above: Performed By: #### 2 55935 #### [facility],[address] [place] [address]396 Bilirubin [Mass/Vol] 0.6 mg/dL Normal 0.2 - 1.0 [facility] Comment on above: Performed By: #### 2 23137 #### [facility],[address] [place] [address]61 Calcium [Mass/Vol] 9.9 mg/dL Normal 8.5 - 10.1 [facility] Comment on above: Performed By: #### 2 70399 #### [facility],[address] [place] [address] 68673 Chloride [Moles/Vol] 100 mmol/L Normal 98 - 107 [facility] Comment on above: Performed By: #### 2 88036 #### [facility],[address] [place] [address] CMP with eGFR Normal [facility] Comment on above: Result Comment: COMP REHENSIVE METABOLIC PANEL Performed By: #### 2 10112 #### [facility],[address] [place] [address] 92189 CO2 [Moles/Vol] 27.9 mmol/L Normal 21.0 - 32.0 [facility] Comment on above: Performed By: #### 2 68678 #### [facility],[address] [place] [address]772 Creatinine [Mass/Vol] 0.92 mg/dL Normal 0.55 - 1.02 [facility] Comment on above: Performed By: #### 2 72954 #### [facility],[address] [place] [address] 50147 eGFR 60 ML/MINUTE Normal 60 - 999 [facility] Comment on above: Performed By: #### 2 02598 #### [address] [address] GFR/1.73 sq M.predicted among non-blacks MDRD (S/P/Bld) [Vol rate/Area] mL/min/{1.73_m2} Normal 60 - 999 [facility] Comment on above: Result Comment: ACCO RDING TO THE NATIONAL KIDNEY DISEASE EDUCATION PROGRAM(NKDE), A NORMAL eGFR IS A VALUE GREATER THAN OR EQUAL TO 60 ML/MIN/1.73 SQ METERS. CHRONIC KIDNEY DISEASE: <60mL/MIN/1.73 SQ METERS KIDNEY FAILURE: <15mL/MIN/1.73 SQ METERS THIS TEST SHOULD ONLY BE USED FOR PATIENTS 18 YEARS OF AGE AND OLDER. Performed By: #### 2 02660 #### [facility],[address] [place] [address] Globulin (S) [Mass/Vol] 2.9 g/dL Normal 1.5 - 3.8 [facility] Comment on above: Performed By: #### 2 21352 #### [facility],[address] [place] [address] Glucose [Mass/Vol] 90 mg/dL Normal 74 - 106 [facility] Comment on above: Performed By: #### 2 83252 #### [facility],[address] [place] [address] Potassium [Moles/Vol] 3.9 mmol/L Normal 3.5 - 5.1 [facility] Comment on above: Performed By: #### 2 73777 #### [facility],[address] [place] [address]25 Protein [Mass/Vol] 7.5 g/dL Normal 6.4 - 8.2 [facility] Comment on above: Performed By: #### 2 [id number] #### [facility],[address] [place] [address] Sodium [Moles/Vol] 139 mmol/L Normal 136 - 145 [facility] Comment on above: Performed By: #### 2 40885 #### [facility],[address] [place] [address] Urea nitrogen [Mass/Vol] 22 mg/dL High 7 - 18 [facility] Comment on above: Performed By: #### 2 84247 #### [facility],[address] [place] [address] LIPID PROFILEon 12-11-2023 Cholesterol [Mass/Vol] 239 mg/dL Normal 0 - 240 [facility] Comment on above: Performed By: #### 2 23442 #### [facility],[address] [place] [address] Cholesterol in HDL [Mass/Vol] 72 mg/dL High 40 - 60 [facility] Comment on above: Performed By: #### 2 39652 #### [facility],[address] [place] [address] Cholesterol in LDL [Mass/Vol] 145 mg/dL High 0 - 129 [facility] Comment on above: Performed By: #### 2 77753 #### [facility],[address] [place] [address] Cholesterol.total/C holesterol in HDL [Mass ratio] 3.3 {ratio} Normal 0.0 - 5.0 [facility] Comment on above: Performed By: #### 2 16846 #### [place] [address] Lipid 1996 panel Normal [facility] Comment on above: Result Comment: LIPI D PROFILE Performed By: #### 2 54958 #### [place] [address] Triglyceride [Mass/Vol] 110 mg/dL Normal 0 - 150 [facility] Comment on above: Performed By: #### 2 44726 #### [place] [address] Provider Note - ED v3on 03-0 Provider Note - ED v3 Provider Note: Chart Review: ED NOTES ED NOTES: Presents for evaluation of URI. Symptoms including cough, congestion, body aches, malaise, and headache have been present for 3 weeks and refractory to OTC meds. No fever, chills, loss of taste/smell, nausea, vomiting, abdominal pain, CP, or SOB. No exacerbating factors. No known COVID 19/flu exposure. HISTORY OF PRESENTING ILLNESS MARLA is a 71 year old Female and was seen by me at 08-Sep-2022 13:08. Triage Information: Most recent Vital Sign Value Date PAST MEDICAL HISTORY ALLERGIES/INTOLERANCES : Allergy Allergen: penicillin Type: Drug Reaction: Hives/Urticaria Allergen: codeine Type: Drug Reaction: Other HEALTH HISTORY: No documented data. OUTPATIENT MEDICATIONS: Home Medications Review Status for Reconciliation: Complete Med Status: Patient Currently Takes Medications Drug Name: traZODone 150 mg oral tablet Instructions: null Drug Name: Cleocin HCl 300 mg oral capsule Instructions: 1 cap(s) orally 2 times a day Drug Name: albuterol 90 mcg/inh inhalation aerosol Instructions: 2 puff(s) inhaled 2 times a day as needed for cough SIGNIFICANT EVENTS: No documented data. REVIEW OF SYSTEMS All other systems reviewed and are negative REVIEW OF SYSTEMS: Comments See HPI PHYSICAL EXAM CONSTITUTIONAL: Nasally voice but appears well nourished, awake, alert, oriented to person, place, time/situation and in no apparent distress. HENMT: Airway patent, ears with clear tympanic membranes bilaterally. Nasal mucosa clear. Mouth with normal mucosa. Throat has no vesicles, no oropharyngeal exudates and uvula is midline. Face with maxillary sinus tenderness bilaterally. EYES: Clear bilaterally, pupils equal, round and reactive to light. CARDIOVASCULAR: Normal rate, regular rhythm. Heart sounds S1, S2. No murmurs, rubs or gallops. PMI non-displaced. RESPIRATORY: Breath sounds clear and equal bilaterally. NEUROLOGICAL: Alert and oriented, no focal deficits, no motor or sensory deficits. SKIN: Skin normal color for race, warm, dry and intact. No evidence of trauma. PSYCHIATRIC: Alert and oriented to person, place, time/situation. normal mood and affect. No apparent risk to self or others. CRITICAL CARE VITAL SIGNS: T PRBP SpO2O2(LPM) %FiO2 Method 08-Sep-2022 12:57:[id number] 3 99 MDM MDM/ED COURSE: Discussed Findings with: patient Data Reviewed: vital signs Treatment Plan: Rx clindamycin and albuterol inhaler. Patient's clinical presentation is otherwise unremarkable at this time. Patient is discharged with instructions to follow-up with primary care or seek emergency medical attention for worsening symptoms or any new concerns. DISPOSITION Diagnosis/Annotation: ED Dx Name:Acute sinusitis Code:J01.90 Disposition: discharged Type: home CONSULT CRITICAL CARE TIME Is this a critically ill patient: no Electronic Signatures: Ken Mena (PUSHER RUNNER[employer]VESSEL SCRAPPER) (Signed 08-Sep-2022 14:08) Authored: ED Notes, HPI, PMH, ROS, PE, Results/Vital Signs, MDM/ED Course, Clinical Impression, Attestation, Chart Review, Scores Last Updated: 08-Sep-2022 14:08 by Ken Mena (PUSHER RUNNER[employer]VESSEL SCRAPPER) Normal Located [facility] G-6-PD Quantitativeon 2020 G-6-PD Quantitative 10.2 U/g Hb Normal 9.9-16.6 [facility] Reference Lab Office Visit (Neuro-Movement )on 11-18-2020 Follow-up visit Patient Discussion/Summary This is a 70-year-old right-handed woman with medical history of hypertension, hyperlipidemia, rheumatoid arthritis, bipolar disorder, anxiety and depression who is coming for evaluation of tremor. 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 Examination revealed no tremor at all with some difficulties with wnfdcx-metq-ehtgim. Her examination has some functional overlay. 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 We would not start on any treatment at this point we will observe and see for any changes. Plan: -No need for further treatment at this point -Follow-up in 1 year Chief Complaint Tremor Neurologic Evaluation. History of Present Illness This is a 70-year-old rt handed woman with past medical history of migraines, anxiety and depression, bipolar, RA, hyperlipidemia, restless leg, back pain, 3 prior hemorrhagic strokes. who presents for evaluation of tremor. 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 The tremor is constant disappears when she is sitting, or watching TV but she feels jittery, (anxious with a sensation of internal tremor) , no compulsions to move but the tremor frustrates her and makes her sit on her hands to stop it. Patient states that the tremor has affected her writing significantly but no changes in the size of her handwriting. 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 She states that her legs feels shaky and weak, sometimes needs to sit down because her legs are so weak. She also has balance issues; she loses her balance if she turns. She had no recent falls. Patient denies RSBD but she lives alone, has ANTONIO , not using CPAP. She endorsed memory problems: forget what she is talking about, sometimes she comes up with weird sentences and words that does not make sense but she rapidly corrects herself. She quit driving because it altered her thinking, she was almost involved in an accidents few times. She states that sometimes she sees things that are not there in the street or does not see things that are not there, also interprets traffic signals incorrectly. She denies any auditory or visual hallucinations. Review of systems: All other systems were reviewed and it was negative except for what was mentioned in the HPI Family Hx: Father had restless leg, primary lateral sclerosis. Social Hx: Denies smoking, alcohol intake or recreational drug use Past medical and past surgical history: As above in addition to Cholecystectomy Lipoma removal Broken wrist and knee with fixation Allergies: penicilline, sulpha and codeine Allergies Medication codeine Recorded By: Diane Craig; 11/18/2020 12:00:53 PM Penicillins Recorded By: Diane Craig; 11/18/2020 12:00:53 PM Sulfa Drugs Recorded By: Diane Craig; 11/18/2020 12:00:53 PM Current Meds Medication NameInstruction BuSpar 5 MG TABSTAKE 1 TABLET TWICE DAILY. [facility] Melatonin 10 MG Oral CapsuleTAKE 1 CAPSULE Daily EQL Fish Oil CAPSTAKE CAPSULE Daily 1200mg Famotidine 10 MG TABS lamoTRIgine 150 MG Oral TabletTAKE 1 TABLET TWICE DAILY. Plaquenil 200 MG Oral TabletTAKE 1 TABLET DAILY. Red Yeast Rice 600 MG Oral CapsuleTAKE DIRECTED. traZODone HCl - 150 MG Oral TabletTAKE 1 TABLET ONCE DAILY. Turmeric 500 MG Oral Tablet Tylenol CAPS Wellbutrin SR 150 MG TBCRTAKE 1 TABLET DAILY. Vitals Vital Signs Recorded: 06Emb4739 11:49AM Jysjqswyjhu71.2 F, Temporal Heart Rate80 Kuxgaueuuaa40 Ogdxwymp218, LUE, Sitting Bgyzxfcgc35, LUE, Sitting Blood Pressure Cuff SizeAdult Height5 ft 3 in Kjfnkp799 lb 6 oz BMI Jdchcchreg03.55 BSA Calculated1.5 O2 Lmeipmogjm01, RA Physical Exam Constitutional: General appearance: no acute distress An elderly woman, appears anxious and restless Auscultation of Heart: Regular rate and rhythm, no murmurs, normal S1 and S2. Mental status: The patient was in no distress, alert, interactive and cooperative. Affect is appropriate. Eyes: The opthalmoscopic exam was not testable. Secondary to marked miosis, the fundi and posterior segments could not be visualized Cranial nerve II: Visual matthews full to confrontation. Cranial nerves III, IV, and : Pupils round, equally reactive to light; no ptosis. EOMs intact. No nystagmus. Cranial Nerve V: Facial sensation intact bilaterally. Cranial nerve VII: Normal and symmetric facial strength. Cranial nerve VIII: Hearing is intact bilaterally to finger rub / whisper. Cranial nerves IX and X: Palate elevates symmetrically. Cranial nerve XI: Shoulder shrug and neck rotation strength are intact. Cranial nerve XII: Tongue midline with normal strength. Motor: Motor exam was normal. Abnormal. Reduced. Muscle tone was normal in both upper and lower extremities. (more content not included)... Normal [facility] VitD, 1,25 Dihydroxyon 06-05 1,25 Dihydroxy VitD2 <4.0 Normal [facility] Comment on above: Performed By: #### 1 25VTD #### [facility] [address] [place], [place] [address] 1,25 Dihydroxy VitD3 44.8 pg/mL Normal [facility] Comment on above: Performed By: #### 1 25VTD #### [facility] [address] [place], [place] [address] Vit D,1,25 DiOH Normal 15.0-60.0 [facility] Comment on above: Result Comment: 44.8 This test was developed and its performance characteristics determined by [facility]'s [facility] [place] ([facility]). It has not been cleared or approved by the FDA. [facility] is regulated under CLIA as qualified to perform high complexity testing. This test is used for clinical purposes. It should not be regarded as investigational or for research. Performed By: #### 1 25VTD #### [facility] [address] [place] [address] CT ABDOMEN AND PELVIS W IV C [facility] 04-07-2020 CT ABDOMEN AND PELVIS W IV CONTRAST Patient Name: MARLA DOLAN STUDY: CT ABDOMEN AND PELVIS W IV CONTRAST; 04/07/2020 2:48 pm INDICATION: ABD PAIN. COMPARISON: None ACCESSION NUMBER(S): [id number] ORDERING CLINICIAN: CHRISTIANA KRISHNAMURTHY TECHNIQUE: CT of the abdomen and pelvis was performed following injection of 72 mL Omnipaque 350. Contiguous axial images were obtained through the abdomen and pelvis. Coronal and sagittal reconstructions were also created. Oral contrast was administered. FINDINGS: INCLUDED LOWER CHEST: No consolidation or effusion. No cardiomegaly. No pericardial effusion. LIVER: Unremarkable. BILE DUCTS: No intrahepatic biliary dilatation. The common bile duct measures 7.6 mm at the head of the pancreas. GALLBLADDER: Status post cholecystectomy. Cholecystectomy clips are present. PANCREAS: Unremarkable. The pancreatic duct measures 2.6 mm at the level of the body of the pancreas. SPLEEN: Unremarkable. ADRENAL GLANDS: Unremarkable. KIDNEYS, URETERS AND BLADDER: Unremarkable. REPRODUCTIVE ORGANS: Normal size of uterus. Anteverted. No adnexal mass. BOWEL: No evidence of obstruction or inflammation. The appendix is not visualized. The small bowel loops are normal in size. The stomach is unremarkable. There is a large amount of fecal material, throughout the colon. No diverticular disease. No abnormal thickening of the wall of the colon. VESSELS: The IVC is unremarkable. Calcification is seen in the distal abdominal aorta extending into the common iliac arteries PERITONEUM/RETROPERITO NEUM/LYMPH NODES: No free fluid or free air. No adenopathy is evident. MUSCULOSKELETAL: No destructive osseous lesion is evident. An S shaped scoliosis of the lumbar spine is seen, with marked degenerative disc disease changes at T12-L1 through L2-3 and at L4-5 and L5-S1 levels. A grade 1 spondylolisthesis is seen at L5-S1. Facet arthrosis is present at multiple levels. IMPRESSION: No acute disease in the abdomen. Status post cholecystectomy. Constipation. Scoliosis with marked degenerative changes of the lumbar spine. Electronically signed by: HONG VALENZUELA MD Normal Located [facility] HEPATITIS BE ABon 01-24-2020 HEPATITIS BE AB Negative Normal Negative [facility] Comment on above: Performed By: #### E SRWS #### [facility] [address] [place] [address] STANLEY WITHOUT REFLEX TO ENAon 01-23-2020 STANLEY WITHOUT REFLEX TO MAYI Negative Normal NEGATIVE [facility] Comment on above: Performed By: #### A NANP #### [facility] [address] [place] [address] CITRULLINE ANTIBODYon 2019 CITRULLINE ANTIBODY <1 Normal [facility] Comment on above: Result Comment: THE TEST FOR ANTIBODIES SPECIFIC FOR CYCLIC CITRULLINATED PEPTIDE (CCP) HAS SHOWN TO BE VALUABLE IN THE DIAGNOSIS OF RHEUMATOID ARTHRITIS. THE DIAGNOSTIC VALUE OF ANTIBODIES TO CCP IN JUVENILE RHEUMATOID ARTHRITIS PATIENTS HAS NOT BEEN DETERMINED. ANTIBODIES TO CENTROMERE OR SS-A AND MYELOMA IGG MAY BE REACTIVE IN THIS ASSAY. REF VALUES NEGATIVE < 3 U/ML POSITIVE >=3 U/ML Performed By: #### C ITAB #### [facility] [address] [place] [address] HEPATITIS B CORE AB;IGMon HEPATITIS B CORE AB,IGM NONREACTIVE Normal NONREACTIVE [facility] Comment on above: Result Comment: Resu lts from patients taking biotin supplements or receiving high-dose biotin therapy should be interpreted with caution due to possible interference with this test. Providers may contact their local laboratory for further information. Performed By: #### H BCRM #### [facility] [address] [place] [address] HEPATITIS B SURFACE AGon HEP.B SURFACE AG NONREACTIVE Normal NONREACTIVE [facility] Comment on above: Result Comment: Biot in interference may cause falsely decreased results. Patients taking a Biotin dose of up to 5 mg/day should refrain from taking Biotin for 24 hours before sample collection. Providers may contact their local laboratory for further information. Performed By: #### H BSAG #### [facility] [address] [place] [address] HEPATITIS C ABon 01-23-2020 HEPATITIS C AB NONREACTIVE Normal NONREACTIVE [facility] Comment on above: Result Comment: Resu lts from patients taking biotin supplements or receiving high-dose biotin therapy should be interpreted with caution due to possible interference with this test. Providers may contact their local laboratory for further information. Performed By: #### H CVAB #### [facility] [address] [place] [address] RHEUMATOID FACTORon 01-23-20 20 RHEUMATOID FACTOR <10 Normal 0 - 15 [facility] Comment on above: Performed By: #### R F #### [facility] [address] [place] [address] C-REACTIVE PROTEINon 020 CRP [Mass/Vol] mg/L Normal [facility] Comment on above: Result Comment: REF VALUE < 1.00 Performed By: #### C RP #### [facility] [address] [place] [address] CBC AND DIFFERENTIALon 01-21 Basophils (Bld) [#/Vol] 0.00 10*3/uL Normal 0.00 - 0.10 [facility] Comment on above: Performed By: #### C BCDF #### [address] [address] Basophils/100 WBC (Bld) 0.6 % Normal 0.0 - 2.0 [facility] Comment on above: Performed By: #### C BCDF #### [address] [address] Eosinophils (Bld) [#/Vol] 0.10 10*3/uL Normal 0.00 - 0.70 [facility] Comment on above: Performed By: #### C BCDF #### [address] [address] Eosinophils/100 WBC (Bld) 1.1 % Normal 0.0 - 6.0 [facility] Comment on above: Performed By: #### C BCDF #### [address] [address] Erythrocyte distribution width (RBC) [Ratio] 12.9 % Normal 11.5 - 14.5 [facility] Comment on above: Performed By: #### C BCDF #### [address] [address] Hematocrit (Bld) [Volume fraction] 44.3 % Normal 36.0 - 46.0 [facility] Comment on above: Performed By: #### C BCDF #### [address] [address] Hemoglobin (Bld) [Mass/Vol] 14.5 g/dL Normal 12.0 - 16.0 [facility] Comment on above: Performed By: #### C BCDF #### [address] [address] Lymphocytes (Bld) [#/Vol] 2.40 10*3/uL Normal 1.20 - 4.80 [facility] Comment on above: Performed By: #### C BCDF #### [address] [address] Lymphocytes/100 WBC (Bld) 40.3 % Normal 13.0 - 44.0 [facility] Comment on above: Performed By: #### C BCDF #### [address] [address] MCHC (RBC) [Mass/Vol] 32.7 g/dL Normal 32.0 - 36.0 [facility] Comment on above: Performed By: #### C BCDF #### [address] [address] MCV (RBC) [Entitic vol] 99 fL Normal 80 - 100 [facility] Comment on above: Performed By: #### C BCDF #### [address] [address] Monocytes (Bld) [#/Vol] 0.40 10*3/uL Normal 0.10 - 1.00 [facility] Comment on above: Performed By: #### C BCDF #### [address] [address] Monocytes/100 WBC (Bld) 6.7 % Normal 2.0 - 10.0 [facility] Comment on above: Performed By: #### C BCDF #### [address] [address] Neutrophils (Bld) [#/Vol] 3.00 10*3/uL Normal 1.20 - 7.70 [facility] Comment on above: Result Comment: Perc ent differential counts (%) should be interpreted in the context of the absolute cell counts (cells/L). Performed By: #### C BCDF #### [address] [address] Neutrophils/100 WBC (Bld) 51.3 % Normal 40.0 - 80.0 [facility] Comment on above: Performed By: #### C BCDF #### [address] [address] Platelets (Bld) [#/Vol] 228 10*3/uL Normal 150 - 450 [facility] Comment on above: Performed By: #### C BCDF #### [address] [address] RBC (Bld) [#/Vol] 4.49 x10E12/L Normal 4.00 - 5.20 [facility] Comment on above: Performed By: #### C BCDF #### [address] [address] WBC (Bld) [#/Vol] 5.9 10*3/uL Normal 4.4 - 11.3 [facility] Comment on above: Performed By: #### C BCDF #### [address] [address] CHEST 2 VIEW PA AND LATon CHEST 2 VIEW PA AND LAT Patient Name: MARLA DOLAN STUDY: CHEST 2 VIEW PA AND LAT; 01/22/2020 2:25 pm INDICATION: M06.4 M79.7Q66.71 M81.0 F31.9 G43.909 I61.9. COMPARISON: 03/21/2019 ACCESSION NUMBER(S): [id number] ORDERING CLINICIAN: GILBERTO TONEY FINDINGS: The lungs are hyperinflated. There is no focal lung consolidation or effusion. There is no edema. The cardiac silhouette is within normal limits for size. IMPRESSION: Hyperinflated lungs. No consolidation or edema seen Electronically signed by: INDERJIT WESTFALL MD Normal [facility] COMPREHENSIVE PANELon 2019 Albumin [Mass/Vol] 4.6 g/dL Normal 3.4 - 5.0 [facility] Comment on above: Performed By: #### C MP #### [address] [address] ALP [Catalytic activity/Vol] 65 U/L Normal 33 - 136 [facility] Comment on above: Performed By: #### C MP #### [address] [address] ALT [Catalytic activity/Vol] 10 U/L Normal 7 - 45 [facility] Comment on above: Result Comment: Tena ents treated with Sulfasalazine may generate falsely decreased results for ALT. Performed By: #### C MP #### [address] [address] Anion gap [Moles/Vol] 11 mmol/L Normal 10 - 20 [facility] Comment on above: Performed By: #### C MP #### [address] [address] AST [Catalytic activity/Vol] 16 U/L Normal 9 - 39 [facility] Comment on above: Performed By: #### C MP #### [address] [address] Bilirubin [Mass/Vol] 0.5 mg/dL Normal 0.0 - 1.2 [facility] Comment on above: Performed By: #### C MP #### [address] [address] Calcium [Mass/Vol] 10.3 mg/dL Normal 8.6 - 10.3 [facility] Comment on above: Performed By: #### C MP #### [address] [address] Chloride [Moles/Vol] 101 mmol/L Normal 98 - 107 [facility] Comment on above: Performed By: #### C MP #### [address] [address] Creatinine [Mass/Vol] 0.86 mg/dL Normal 0.50 - 1.05 [facility] Comment on above: Performed By: #### C MP #### [address] [address] GFR- AM. >60 Normal >60 [facility] Comment on above: Result Comment: CALC ULATIONS OF ESTIMATED GFR ARE PERFORMED USING THE MDRD STUDY EQUATION FOR THE IDMS-TRACEABLE CREATININE METHODS. CLIN CHEM 2007;53:766-72 Performed By: #### C MP #### [address] [address] GFR-NON AM. >60 Normal >60 [facility] Comment on above: Performed By: #### C MP #### [address] [address] Glucose [Mass/Vol] 85 mg/dL Normal 74 - 99 [facility] Comment on above: Performed By: #### C MP #### [address] [address] HCO3 (Bld) [Moles/Vol] 29 mmol/L Normal 21 - 32 [facility] Comment on above: Performed By: #### C MP #### [address] [address] Potassium [Moles/Vol] 3.8 mmol/L Normal 3.5 - 5.3 [facility] Comment on above: Performed By: #### C MP #### [address] [address] Protein [Mass/Vol] 7.5 g/dL Normal 6.4 - 8.2 [facility] Comment on above: Performed By: #### C MP #### [address] [address] Sodium [Moles/Vol] 137 mmol/L Normal 136 - 145 [facility] Comment on above: Performed By: #### C MP #### [address] [address] Urea nitrogen [Mass/Vol] 20 mg/dL Normal 6 - 23 [facility] Comment on above: Performed By: #### C MP #### [address] [address] HEPATITIS C ABon 01-22-2020 Lab Specimen Source Normal [facility] Comment on above: Performed By: #### H CVAB #### [facility] [address] [place] [id number] Performed By: #### H BSAG #### [facility] [address] [place] [address] Performed By: #### H BCRM #### [facility] [address] [place] [address] PELVIS, 1 OR 2 VIEWSon 01-21 PELVIS, 1 OR 2 VIEWS Patient Name: MARLA DOLAN STUDY: PELVIS, 1 OR 2 VIEWS; 01/22/2020 2:25 pm INDICATION: M06.4 M79.7Q66.71 M81.0 F31.9 G43.909 I61.9. COMPARISON: None. ACCESSION NUMBER(S): [id number] ORDERING CLINICIAN: GILBERTO TONEY FINDINGS: Pelvis, single view There is no fracture. There is no dislocation. No degenerative changes seen. No erosive change or sclerosis. Synovial herniation pit in the right femoral head neck junction. IMPRESSION: Grossly unremarkable radiographs. Synovial herniation pit in the right femoral head neck junction. Electronically signed by: INDERJIT WESTFALL MD Normal [facility] SEDIMENTATION RATE, ERYTHROC YTEon 01-22-2020 SEDIMENTATION RATE, ERYTHROCYTE 8 mm/h Normal 0 - 30 [facility] Comment on above: Performed By: #### E SRWS #### [address] [address] XR Chest 2 Viewson 9 XR Chest 2 Views Exam Date/Time: 03/21/2019 11:08 EDT Reason for Exam: bronchitis Report STUDY: XR Chest 2 Views; 03/21/2019 11:08 am INDICATION: bronchitis. COMPARISON: None. ACCESSION NUMBER(S): [id number] ORDERING CLINICIAN: Christiana Krishnamurthy FINDINGS: PA and lateral views of the chest were obtained. No focal infiltrate, pleural effusion or pneumothorax is identified. The cardiac silhouette is within normal limits for size. Moderate discogenic degenerative changes are seen throughout the thoracic spine. IMPRESSION: No focal infiltrate or pneumothorax. FINAL REPORT Dictated: 03/22/2019 1:23 pm Edgar Guardado MD Signed (Electronic Signature): 03/22/2019 1:23 pm Signed by: Edgar Guardado MD Technologist: HLR Normal [facility] Free T3on 12-17-2018 Free T3 [Mass/Vol] 3.7 pg/mL Normal 2.5-3.9 [facility] Comment on above: Performed By: #### 2 [id number] #### [employer] [address] [place] [address] Free T4on 12-17-2018 Free T4 [Mass/Vol] 0.79 ng/dL Normal 0.58-1.64 [facility] Comment on above: Performed By: #### 2 [id number] #### [employer] [address] [place] [address] Lipid Profileon 12-17-2018 Cholesterol [Mass/Vol] 254 mg/dL High 0-199 [facility] Comment on above: Performed By: #### 3 [id number] #### REUBEN [facility] [place] [address] Cholesterol in HDL [Mass/Vol] 74 mg/dL High 40-60 [facility] Comment on above: Performed By: #### 3 [id number] #### REUBEN [facility] [place] [address] Cholesterol in LDL [Mass/Vol] 148 mg/dL High 0-130 [facility] Comment on above: Performed By: #### 3 [id number] #### REUBEN [facility] [place] [address] Cholesterol in VLDL [Mass/Vol] 32 mg/dL Normal 0-40 [facility] Comment on above: Performed By: #### 3 [id number] #### REUBEN [facility] [place] [address] Triglyceride [Mass/Vol] 158 mg/dL High 0-149 [facility] Comment on above: Result Comment: AGE DESIRABLE BORDERLINE HIGH 91 D - 9 Y 0 - 74 75 - 99 > 100 10 - 19 Y 0 - 89 90 - 129 > 130 20 - 24 Y 0 - 114 115 - 149 > 150 > 25 0 - 149 150 - 199 200 - 499 Performed By: #### 3 [id number] #### RE[employer]EN [employer] [address] [place] [address] TSHon 12-17-2018 TSH Qn 1.56 mcIU/mL Normal 0.30-5.60 [facility] Comment on above: Performed By: #### 2 [id number] #### [employer] [address] [place] [address] XR Ankle 3+ Views Righton XR Ankle 3+ Views Right Exam Date/Time: 12/02/2018 10:55 EDT Reason for Exam: Pain Report STUDY: XR Ankle 3+ Views Right; 12/02/2018 10:55 am INDICATION: Pain. TWISTED RT ANKLE YESTERDAY. BRUISING. PAIN LAT ASPECT OF RT ANKLE. COMPARISON: None. ACCESSION NUMBER(S): [id number] ORDERING CLINICIAN: Cole Barrera TECHNIQUE: 3 views of the right ankle were obtained. FINDINGS: Diffuse ankle soft tissue swelling. There is an acute slightly displaced avulsion fracture off of the inferior tip of the lateral malleolus. There is also a tiny nondisplaced avulsion fracture fragment off of the lower medial cortex of the talus on the oblique view only. Talar dome and tibial plafond are intact. The medial malleolus and posterior malleolus are intact. No other fracture is evident in this exam. No lytic or blastic destructive bone lesion. . No opaque soft tissue foreign body. No periosteal reaction or erosion. No significant osteophytic change. IMPRESSION: Diffuse ankle soft tissue swelling. Acute slightly displaced avulsion fracture off of the tip of the distal fibula. There is also an acute nondisplaced avulsion fracture off of the medial-inferior cortex of the talus on the oblique view only. FINAL REPORT Dictated: 12/02/2018 11:29 am Elie Dominguez MD Signed (Electronic Signature): 12/02/2018 11:29 am Signed by: Elie Dominguez MD Technologist: [facility] Vital Signs Date Time Vital Sign Value Performing Clinician Facility 03-24-2025 13:21-0400 Body height 157.48 cm Christiana Krishnamurthy NP-C Work Phone: [facility] 03-24-2025 13:21-0400 Body mass index (BMI) [Ratio] 27.1 kg/m2 Christiana Krishnamurthy NP-C Work Phone: [facility] 03-24-2025 13:21-0400 Body temperature 98.2 [degF] Christiana Krishnamurthy SUPERVISOR PAPER MACHINE-C Work Phone: [facility] 03-24-2025 13:21-0400 Body weight 67.13 kg Christiana Krishnamurthy SUPERVISOR PAPER MACHINE-C Work Phone: [facility] 03-24-2025 13:21-0400 Diastolic blood pressure 76 mm[Hg] Christiana Krishnamurthy SUPERVISOR PAPER MACHINE-C Work Phone: [facility] 03-24-2025 13:21-0400 Heart rate 67 /min Christiana Krishnamurthy NP-C Work Phone: [facility] 03-24-2025 13:21-0400 Respiratory rate 16 /min Christiana Krishnamurthy SUPERVISOR PAPER MACHINE-C Work Phone: [facility] 03-24-2025 13:21-0400 SaO2% (BldA) [Mass fraction] 96 % Christiana Krishnamurthy SUPERVISOR PAPER MACHINE-C Work Phone: [facility] 03-24-2025 13:21-0400 Systolic blood pressure 144 mm[Hg] Christiana Krishnamurthy SUPERVISOR PAPER MACHINE-C Work Phone: [facility] 02-20-2025 14:02-0400 Body height 157.48 cm Christiana Krishnamurthy SUPERVISOR PAPER MACHINE-C Work Phone: [facility] 02-20-2025 14:02-0400 Body mass index (BMI) [Ratio] 26.6 kg/m2 Christiana Krishnamurthy SUPERVISOR PAPER MACHINE-C Work Phone: [facility] 02-20-2025 14:02-0400 Body temperature 98.4 [degF] Christiana Krishnamurthy SUPERVISOR PAPER MACHINE-C Work Phone: [facility] 02-20-2025 14:02-0400 Body weight 66.22 kg Christiana Krishnamurthy SUPERVISOR PAPER MACHINE-C Work Phone: [facility] 02-20-2025 14:02-0400 Diastolic blood pressure 71 mm[Hg] Christiana Krishnamurthy SUPERVISOR PAPER MACHINE-C Work Phone: [facility] 02-20-2025 14:02-0400 Heart rate 61 /min Christiana Krishnamurthy SUPERVISOR PAPER MACHINE-C Work Phone: [facility] 02-20-2025 14:02-0400 Respiratory rate 16 /min Christiana Krishnamurthy SUPERVISOR PAPER MACHINE-C Work Phone: [facility] 02-20-2025 14:02-0400 Systolic blood pressure 115 mm[Hg] Christiana Krishnamurthy SUPERVISOR PAPER MACHINE-C Work Phone: [facility] 01-23-2025 14:01-0400 Body height 157.48 cm Christiana Krishnamurthy SUPERVISOR PAPER MACHINE-C Work Phone: [facility] 01-23-2025 14:01-0400 Body mass index (BMI) [Ratio] 26.9 kg/m2 Christiana Krishnamurthy SUPERVISOR PAPER MACHINE-C Work Phone: [facility] 01-23-2025 14:01-0400 Body temperature 97.8 [degF] Christiana Krishnamurthy SUPERVISOR PAPER MACHINE-C Work Phone: [facility] 01-23-2025 14:01-0400 Body weight 66.67 kg Chrisitana Krishnamurthy SUPERVISOR PAPER MACHINE-C Work Phone: [facility] 01-23-2025 14:01-0400 Diastolic blood pressure 72 mm[Hg] Christiana Krishnamurthy SUPERVISOR PAPER MACHINE-C Work Phone: [facility] 01-23-2025 14:01-0400 Heart rate 74 /min Christiana Krishnamurthy SUPERVISOR PAPER MACHINE-C Work Phone: [facility] 01-23-2025 14:01-0400 Respiratory rate 15 /min Christiana Krishnamurthy SUPERVISOR PAPER MACHINE-C Work Phone: [facility] 01-23-2025 14:01-0400 SaO2% (BldA) [Mass fraction] 95 % Christiana Krishnamurthy SUPERVISOR PAPER MACHINE-C Work Phone: [facility] 01-23-2025 14:01-0400 Systolic blood pressure 128 mm[Hg] Christiana Krishnamurthy SUPERVISOR PAPER MACHINE-C Work Phone: [facility] 12-12-2024 13:03-0400 Body height 157.48 cm Christiana Krishnamurthy SUPERVISOR PAPER MACHINE-C Work Phone: [facility] 12-12-2024 13:03-0400 Body mass index (BMI) [Ratio] 26.9 kg/m2 Christiana Krishnamurthy SUPERVISOR PAPER MACHINE-C Work Phone: [facility] 12-12-2024 13:03-0400 Body temperature 98 [degF] Christiana Krishnamurthy SUPERVISOR PAPER MACHINE-C Work Phone: [facility] 12-12-2024 13:03-0400 Body weight 66.67 kg Christiana Krishnamurthy SUPERVISOR PAPER MACHINE-C Work Phone: [facility] 12-12-2024 13:03-0400 Diastolic blood pressure 77 mm[Hg] Christiana Krishnamurthy SUPERVISOR PAPER MACHINE-C Work Phone: [facility] 12-12-2024 13:03-0400 Heart rate 82 /min Christiana Krishnamurthy SUPERVISOR PAPER MACHINE-C Work Phone: [facility] 12-12-2024 13:03-0400 Respiratory rate 15 /min Christiana Krishnamurthy SUPERVISOR PAPER MACHINE-C Work Phone: [facility] 12-12-2024 13:03-0400 SaO2% (BldA) [Mass fraction] 96 % Christiana Krishnamurthy SUPERVISOR PAPER MACHINE-C Work Phone: [facility] 12-12-2024 13:03-0400 Systolic blood pressure 128 mm[Hg] Christiana Krishnamurthy SUPERVISOR PAPER MACHINE-C Work Phone: [facility] 10-23-2024 13:12-0400 Body mass index (BMI) [Ratio] 27.8 kg/m2 Christiana Krishnamurthy SUPERVISOR PAPER MACHINE-C Work Phone: [facility] 10-23-2024 13:12-0400 Body temperature 97.8 [degF] Christiana Krishnamurthy SUPERVISOR PAPER MACHINE-C Work Phone: [facility] 10-23-2024 13:12-0400 Body weight 68.94 kg Christiana Krishnamurthy SUPERVISOR PAPER MACHINE-C Work Phone: [facility] 10-23-2024 13:12-0400 Diastolic blood pressure 78 mm[Hg] Christiana Krishnamurthy SUPERVISOR PAPER MACHINE-C Work Phone: [facility] 10-23-2024 13:12-0400 Heart rate 78 /min Christiana Krishnamurthy SUPERVISOR PAPER MACHINE-C Work Phone: [facility] 10-23-2024 13:12-0400 Respiratory rate 16 /min Christiana Krishnamurthy SUPERVISOR PAPER MACHINE-C Work Phone: [facility] 10-23-2024 13:12-0400 SaO2% (BldA) [Mass fraction] 97 % Christiana Krishnamurthy SUPERVISOR PAPER MACHINE-C Work Phone: [facility] 10-23-2024 13:12-0400 Systolic blood pressure 132 mm[Hg] Christiana Krishnamurthy SUPERVISOR PAPER MACHINE-C Work Phone: [facility] 09-08-2022 14:57-0500 Body height 160 cm Christiana Krishnamurthy Other Phone: [facility] 09-08-2022 14:57-0500 Body temperature 97.34 [degF] Christiana Krishnamurthy Other Phone: [facility] 09-08-2022 14:57-0500 Diastolic blood pressure 63 mm[Hg] Christiana Krishnamurthy Other Phone: [facility] 09-08-2022 14:57-0500 Heart rate 74 /min Christiana Krishnamurthy Other Phone: [facility] 09-08-2022 14:57-0500 Respiratory rate 16 /min Christiana Krishnamurthy Other Phone: [facility] 09-08-2022 14:57-0500 SaO2% (BldA) [Mass fraction] 99 % Christiana Krishnamurthy Other Phone: [facility] 09-08-2022 14:57-0500 Systolic blood pressure 119 mm[Hg] Christiana Krishnamurthy Other Phone: [facility] Encounters Encounter Date Encounter Type Care Provider Facility Start: 04-04-2025 ambulatory Julee Bull Facility: [facility] Start: 03-24-2025 End: 03-24-2025 Patient encounter procedure Julee Bull SUPERVISOR PAPER MACHINE-C -[facility] Work Phone: Start: 03-24-2025 End: 03-24-2025 ambulatory Christiana Krishnamurthy SUPERVISOR PAPER MACHINE-C Work Phone: -[facility] Start: 03-24-2025 End: 03-24-2025 ambulatory Spencer Oliver Facility:[facility] Start: 02-20-2025 End: 02-20-2025 Patient encounter procedure Julee CHOWDHURYC -[facility] Work Phone: Start: 02-20-2025 End: 02-20-2025 ambulatory Christiana Krishnamurthy SUPERVISOR PAPER MACHINE-C Work Phone: -[facility] Start: 01-23-2025 End: 01-23-2025 Patient encounter procedure Julee Bull NP-C -[facility] Work Phone: Start: 01-23-2025 End: 01-23-2025 ambulatory Christiana Krishnamurthy SUPERVISOR PAPER MACHINE-C Work Phone: -[facility] Start: 12-12-2024 End: 12-12-2024 Patient encounter procedure Julee CHOWDHURYC -[facility] Work Phone: Start: 12-12-2024 End: 12-12-2024 ambulatory Christiana Krishnamurthy SUPERVISOR PAPER MACHINE-C Work Phone: [facility] Work Phone: Start: 12-05-2024 End: 12-05-2024 ambulatory CHRISTIANA KRISHNAMURTHY [facility] Start: 10-23-2024 End: 10-23-[address] Christopher Bowens MD -[facility] Work Phone: Start: 10-23-2024 End: 10-23-2024 ambulatory Christopher Bowens Facility:[facility] Start: 08-06-2024 End: 08-06-2024 ambulatory SOFYA DAVE Facility:[facility] Start: 08-06-2024 End: 08-06-2024 Patient encounter procedure Sofya Dave OD Work Phone: [facility] Comment on above: Dry eyes, bilateral (Primary Dx); Floaters, bilateral; Hyperopia, left; Regular astigmatism, bilateral; Pseudophakia Start: 06-17-2024 End: 06-17-2024 ambulatory CHRISTIANA KRISHNAMURTHY [facility] Start: 06-11-2024 End: 06-11-2024 Emergency department patient visit Reginald Ventura Facility:[facility] Start: 12-11-2023 End: 12-11-2023 ambulatory CHRISTIANA KRISHNAMURTHY [facility] Start: 09-08-2022 End: 09-08-2022 Emergency department patient visit [facility] Plan of Treatment Date Care Activity Detail Author Start: 2025 RSV Vaccine (1 - 1-d ose 75+ series) RSV Vaccine (1 - 1-dose 75+ series) [facility] Start: 08-11-2025 End: 08-11-2025 Patient encounter procedure 08/11/2025 1:30 PM EST Office Visit [facility] [address] [place] [address] Sofya Dave, OD [address] [id number] Eye exam/[facility] Comment on above: [facility] Start: 03-24-2025 Ferritin [Mass/volum e] in Serum or Plasma [facility] Start: 03-24-2025 Folic acid measureme nt, RBC [facility] Start: 03-24-2025 Iron [Mass/mass] in Unspecified specimen [facility] Start: 03-24-2025 Magnesium measurement [facility] Start: 03-24-2025 Thyroid stimulating hormone measurement [facility] Start: 03-24-2025 Vitamin B12 measurement [facility] Start: 07-10-2024 Advance Directive Discussion Advance Directive Discussion [facility] Start: 03-10-2024 Covid-19 Vaccine ( season) Covid-19 Vaccine ( season) [facility] Start: 03-10-2024 Influenza vaccination Influenza Vacc ine (#1) [facility] Start: 09-04-2016 Shingrix Vaccine (2 of 3) Shingrix Vaccine (2 of 3) [facility] Start: 09-21-2015 Screening for osteoporosis Bone Density Screening [facility] Start: 06-08-2004 Diabetes Screening Diabetes Screenin g [facility] Start: 09-21-1995 Lipid panel Lipid Screening [facility] Start: 09-21-1995 Screening for malign ant neoplasm of colon [facility] Start: 1990 Screening for malign ant neoplasm of breast Mammogram Screening [facility] Start: 1969 Urine microalbumin profile DTaP,Tdap,Td Vaccine (1 - Tdap) [facility] Start: 1968 Anxiety Screening Anxiety Screening [facility] Start: 1968 Depression Screening Depression Scre ening [facility] Start: 1968 Hepatitis C screening Hepatitis C [facility] Hematocrit [Volume Fraction] of Blood [facility] MR Brain WO and W contrast IV [facility] Payers Date Payer Category Payer Unknown 2024 Unknown [id number] 2024 Medicare [id number] 2024 Self-pay 1950 Unknown [id number] 2.16.8 [id number] 1950 Unknown [id number] 2.16.8 [id number] 1950 Unknown [id number] 2.16.8 [id number] 1950 Unknown [id number] 2.16.8 [id number] Private Health Insurance [id number] Unknown [id number] 2.16.8 [id number] Unknown [id number] 2.16.8 [id number] Unknown [id number] 2.16.8 [id number] Unknown [id number] 2.16.8 [id number] Unknown [id number] 2.16.8 [id number] Unknown [id number] 2.16.8 [id number] Unknown [id number] 2.16.8 [id number] Unknown [id number] 2.16.8 [id number] Social History Date Type Detail Facility [facility] Tobacco smoking consumption unknown [facility] Start: 08-06-2024 End: 10-23-2024 Tobacco smoking status NHIS Ex-smoker [facility] History of tobacco use Current smoker [facility] History of tobacco use Cigarette Smoker C [facility] Start: 08-06-2024 Tobacco use and exposure Smokeless tobacco non-user [facility] Start: 08-06-2024 Alcoholic beverage intake Ex-drinker (finding) [facility] Start: 07-29-2024 End: 08-06-2024 History of Social function [facility] Start: 07-29-2024 End: 08-06-2024 Tobacco use panel [facility] National Score (1-100), lower number is lower risk 89 [facility] Start: 1950 Sex assigned at Not on file C [facility] Start: 1950 Sex Assigned At Female W [facility] Clinical Notes 08-06-2024 to 03-24-2025 Note Date & Type Note Facility 03-24-2025 Progress note [facility] 03-24-2025 Progress note Note Date/Time March 24, 2025 3:32pm [facility] [address] [place] [address], [address] [place] [address] OFFICE VISIT Date of Service: 03/24/25 MR#: [id number] Acct: [id number] Name: MARLA DOLAN Rep #: [id number] : 1950 Provider: HO Bull Age/Sex: 74/F Location: [facility]. Status: Signed HPI [facility] Chief Complaint: Follow-up Details: History of present illness: Ms. Dolan is a 74-year-old right-handed female who follows with neurology for management of tremors. She established care with Dr. Bowens on 10/23/2024. Pertinent past medical history includes bipolar disorder controlled on lamotrigine. She is on trazodone, hydroxyzine, and melatonin for sleep. Patient has a longstanding history of headaches. She denies photophobia/phonophobia. She denies nausea/vomiting. Aggravating factors tend to be increased stress/anxiety. Patient provided insight of her addiction history of benzodiazepines, narcotics, alcohol, and cigarettes. She has not used any of these substances for quite some time. She has a remote history of hemorrhagic stroke (2012), unclear mechanism. Records [place] Most recentneuroimaging was CT brain dated June 2024 demonstrating small old bilateral parietal lobe infarcts. She has a history of restless leg syndrome, starting in her teens. There appears to be a genetic component. Onset is approximately 45 minutes after she lays down in bed. There is some augmentation of symptoms occasionally affectingher arms as well. She also has neuropathy present in the bilateral feet that isnot a pressing issue for the patient at this time. She presented to neurology with a progressive bilateral hand tremor, right greater than left, cerebellar in nature on exam. Tremor is high-frequency, moderate amplitude. Patient also described an internal tremor of her chest. Patient indicates that she has had tremor for approximately 7 years. Previously, her tremor was not severe enough to warrant treatment; however, patient now states that her tremor causes her to break dishes. She also has difficulty cutting her food and feeding herself. Patient lives alone. Patient is mobile and able to ambulate although she indicates she falls approximately 4 times per year. Given that her tremor is now interfering with her ADLs, treatment was pursued. Primidone and magnesium oxide were not tolerated due toGI intolerance. She was initiated on propranolol in January 2025. Family history appears to be negative for Parkinson's disease or essential tremor. She reports her father had primary lateral sclerosis, which was cause of in his case. Interim history: Patient presents to neurology today 03/24/2025 for a 6-week follow-up. She was last seen by myself on 02/20/2025. At her last appointment, propranolol 10mg BIDwas increased to 20mg BID for management of tremor. She is here today to assessthe efficacy/tolerability of this treatment. Patient is tolerating propranolol with no reported adverse effects. BP 144/76 and heart rate 67 bpm. She denies any dizziness or lightheadedness. Her tremor is marginally improved. Her gait is ataxic and she has had several near falling episodes. This has beenongoing and present prior to propranolol initiation. She reports chronic tinnitus and mild neuropathy in her feet so it is unclear if this is a cerebellar, vestibular, or sensory ataxia or a combination of the such. She hasdysmetria in her upper extremities, left worse than right. Her tremor however is worse on the right. ROS: Per HPI, essentially unchanged. She denies any dizziness or lightheadedness. She denies any falls since her previous visit. She currently has a mild generalized headache without photophobia, phonophobia, or nausea/vomiting. PHYSICAL EXAM: Constitutional: Well-developed, well-nourished right-handed female in no acute distress. She is hard of hearing but does not wear hearing aids. Psych: Cooperative. Judgement and insight good. Respiratory: Normal effort. Symmetric chest movement. Clear to auscultation bilaterally. Cardio: Regular rate and rhythm. No auscultated murmurs. No auscultated carotid bruits. Neurological exam: Mental status: Alert and awake. She occasionally has blocks in her speech and has difficulty word finding but she has good comprehension. There is a mild vocal tremor. Phonation normal; no dysarthria. Cerebellum: No nystagmus; no gaze palsies identified. She has dysmetria; pydwds-zs-jzhz maneuvers are uncoordinated partly due to kinetic tremor. Rapid finger tapping test is with normal amplitude but with decreased speed, left worse than right. There is presence of a bilateral high-frequency moderate amplitude hand tremor, right greater than left. Tremors are present both at rest and with action. Reflexes: Babinski negative. Biceps and patellar reflexes 2+ bilaterally. Motor: No cogwheel rigidity of the wrists. Gait/Stance: Posture is normal. Gait is ataxic and she frequently loses her balance. She does not turn en bloc. Assessment and Plan Assessment and Plan (1) Cerebellar tremor: Status: Chronic (2) History of stroke: Status: Chronic (3) Ataxic gait: Status: Acute (4) Neuropathy of both feet: Status: Suspected (5) Restless leg syndrome: Status: Chronic (6) Generalized headaches: Status: Chronic Orders: Orders Vitamin B12 Today G25.2 - Other specified forms of tremor, G57.93 - Unspecifiedmononeuropathy of bilateral lower limbs Thyroid Stim Hormone (TSH) Today G25.2 - Other specified forms of tremor, G57.93 - Unspecified mononeuropathy of bilateral lower limbs Magnesium Today G25.2 - Other specified forms of tremor, G57.93 - Unspecified mononeuropathy of bilateral lower limbs Folates, RBC Today G25.2 - Other specified forms of tremor, G57.93 - Unspecified mononeuropathy of bilateral lower limbs Iron Today G25.2 - Other specified forms of tremor, G25.81 - Restless legs syndrome, G57.93 - Unspecified mononeuropathy of bilateral lower limbs Ferritin Today G25.2 - Other specified forms of tremor, G25.81 - Restless legs syndrome, G57.93 - Unspecified mononeuropathy of bilateral lower limbs Brain W/WO Contrast Today G25.2 - Other specified forms of tremor, R26.0 - Ataxic gait, R51.9 - Headache, unspecified, Z86.73 - Personal history of transient ischemic attack (TIA), and cerebral infarction without residual deficits Medications: Changed From propranolol Take 0.5 tablet (10mg) QAM and 1 tablet (20mg) QHS x1 week then increase to 1tablet (20mg) BID 20 mg PO BID 30 tabs 1RF To propranolol 20 mg PO TID 90 tabs 1RF Plan ASSESSMENT: Patient has several neurological issues. Tremor Features appear to be most consistent with cerebellar tremor. Due to the interference with her ADLs, pharmacotherapy was pursued with goals of tremor reduction of ~50%. Both primidone and magnesium oxide were not tolerated due toGI intolerance and were subsequently discontinued. Propranolol was initiated inJ2024 and increased in February 2025. Her tremor is marginally improved. A further dose increase will be prescribed to see if patient has a more therapeutic response. Ataxia Her gait is ataxic and she has had several near falling episodes. This has beenongoing and present prior to propranolol initiation. She reports chronic tinnitus and mild neuropathy in her feet so it is unclear if this is a cerebellar, vestibular, or sensory ataxia or a combination of the such. She has dysmetria in her upper extremities, left worse than right. Her tremor however is worse on the right. Her father had primary lateral sclerosis. History of hemorrhagic stroke Patient had a hemorrhagic stroke in 2012, unclear of the mechanism. Records [place] available for review [place] Patient to consider addition of aspirin 81 mg daily for secondary stroke prevention given her history; however, patient is currently on meloxicam and wants to defer aspirin for the time being since she should not be on both. Restless leg syndrome There appears to be a genetic component and symptoms began in her teens. Onset is approximately 45 minutes after she lays down in bed. There is some augmentation of symptoms occasionally affecting her arms as well. She previously did not tolerate gabapentin. Addition of pramipexole could be considered in the future; however, this would have to be pursued with caution considering patient's psychiatric and addiction history. Headaches Patient has a longstanding history of headaches. She denies photophobia/phonophobia and nausea/vomiting. Aggravating factors tend to be increased stress/anxiety. She is on lamotrigine, trazodone, and hydroxyzine forpysch. Propranolol may also be beneficial for her headaches in addition to tremor management. PLAN: ? Increase propranolol 20mg from twice daily to three times daily for tremor andheadaches. ? Obtain labs including B12, folate, TSH, and magnesium. CBC/CMP were obtained in November 2024 by PCP. ? Also will obtain iron/ferritin in the setting of RLS ? Obtain MRI brain W/WO contrast Patient to follow-up with neurologist Dr. Wapenski in 8 weeks to assess propranolol efficacy, review labs, and review MRI. Intake Vital Signs 02/20/25 14:02 03/24/25 13:21 Height 1.57 m 1.57 m Weight: 66.224 kg 67.132 kg BMI 26.6 27.1 BP 115/71 144/76 H Blood Pressure Location Rt brachial Lt brachial Position Sitting Sitting Respiration 16 16 Pulse 61 67 Pulse Source Monitor Monitor Temp 98.4 F 98.2 F Temp Source Temporal Temporal Pulse Oximetry (%) 96 Oxygen Delivery Method room air Intake Visit Reasons: 6 WKS Chief Complaint: Follow-up Director Of Radiology Required: No Accompanied by: Self Is patient in pain?: No (headache, abdominal cramps, left low back) Allergies Penicillins Allergy (Verified 03/24/25 13:25) Hives Medications ?Medication ?Instructions ?Recorded ?Confirmed ?Type atorvastatin 10 mg tablet 10 mg PO 2XW 10/23/24 History famotidine 40 mg tablet 40 mg PO BID 10/23/24 History hydroxyzine HCl 25 mg tablet 25 - 50 mg PO QHS 5 03/24/25 History lamotrigine 150 mg tablet 150 mg PO BID 10/23/2403/24 History meloxicam 7.5 mg tablet 7.5 mg PO QDAY 10/23/2403/10 History trazodone 50 mg tablet 50 mg PO QHS 12/12/24 History propranolol 20 mg tablet 20 mg PO TID #90 tabs 03/24/25 Rx Have you fallen in the past year?: [facility] Acquired hypothyroidism Chronic infective otitis externa of both ears Cognitive complaints Dizziness Bipolar affective disorder, mixed Migraine without status migrainosus, not intractable Insomnia Neuropathy of both feet History of hemorrhagic cerebrovascular accident (CVA) with residual deficit Other allergic rhinitis Chronic constipation Seborrhea capitis Inflammatory polyarthropathy or polyarthritis Chronic neck and back pain Fibromyalgia Age related osteoporosis Chronic kidney disease, stage 3b Frequency-urgency syndrome Congenital pes cavus, right foot Dysphagia, pharyngoesophageal Tremor, unspecified Basal cell carcinoma Surgical History H/O section H/O lumpectomy H/O arthroscopic knee surgery Hx of cholecystectomy H/O cataract extraction Family History Mother , 77 Melanoma Hypertension Father , 75 Prostate cancer Social History household members: none current occupational status: retired pets and animals: Yes pets and animals: dog(s) Smoking Status: Former smoker alcohol intake: never caffeine: No do you feel safe at home: Yes Clinical Quality Measures Falls Risk Screening/Assistive Devices Have you fallen in the past year?: Yes Coding Level of Care Code Off vis,est,level 5 Diagnoses Cerebellar tremor G25.2 History of stroke Z86.73 Ataxic gait R26.0 Neuropathy of both feet G57.93 Restless leg syndrome G25.81 Generalized headaches R51.9 03/24/25 1532 <Electronically signed by Julee TEAGUE> Date _ Julee TEAGUE Cosigner Signature: Date (if applicable) CC: ~ [employer] Work Phone: 1(909) 595-932606-05-2025 Evaluation note* Diagnosis Onset Date Resolution Status Admit Date Cerebellar tremor chronic December 12:56pm History of stroke chronic December 12:56pm Neuropathy of both feet suspected J 2024 12:56pm Cerebellar tremor chronic January 232024 1:58pm History of stroke chronic January 232024 1:58pm Neuropathy of both feet suspected J abilio 2024 1:58pm Cerebellar tremor chronic February 20, 2025 1:57pm History of stroke chronic February 20, 2025 1:57pm Neuropathy of both feet suspected A ugust 2024 1:57pm Ataxic gait acute March 1:20pm Cerebellar tremor chronic Septemb er 2024 1:20pm Generalized headaches chronic Sep tember 2024 1:20pm History of stroke chronic Septemb er 2024 1:20pm Restless leg syndrome chronic Sep tember 2024 1:20pm Neuropathy of both feet suspected S eptember 2024 1:20pm [facility] Work Phone: 1(200) 962-105204-16-2025 Evaluation note* Diagnosis Onset Date Resolution Status Admit Date Cerebellar tremor chronic October 082024 1:05pm History of stroke chronic October 082024 1:05pm Neuropathy of both feet suspected A pril 2024 1:05pm Cerebellar tremor chronic December 12:56pm History of stroke chronic December 12:56pm Neuropathy of both feet suspected J une 2024 12:56pm [employer] Work Phone: 1(477) 988-903904-16-2025 Evaluation note* Diagnosis Onset Date Resolution Status Admit Date Cerebellar tremor chronic October 082024 1:05pm History of stroke chronic October 082024 1:05pm Neuropathy of both feet suspected A pril 2024 1:05pm Cerebellar tremor chronic December 12:56pm History of stroke chronic December 12:56pm Neuropathy of both feet suspected J une 2024 12:56pm Cerebellar tremor chronic January 232024 1:58pm History of stroke chronic January 232024 1:58pm Neuropathy of both feet suspected J abilio 2024 1:58pm [email or web address] [facility] Work Phone: 1(678) 137-212104-16-2025 Evaluation note* Diagnosis Onset Date Resolution Status Admit Date Cerebellar tremor chronic October 082024 1:05pm History of stroke chronic October 082024 1:05pm Neuropathy of both feet suspected A pril 2024 1:05pm Cerebellar tremor chronic December 12:56pm History of stroke chronic December 12:56pm Neuropathy of both feet suspected J une 2024 12:56pm Cerebellar tremor chronic January 232024 1:58pm History of stroke chronic January 232024 1:58pm Neuropathy of both feet suspected J abilio 2024 1:58pm Cerebellar tremor chronic February 20, 2025 1:57pm History of stroke chronic February 20, 2025 1:57pm Neuropathy of both feet suspected A ugust 2024 1:57pm [facility] Work Phone: [phone] Instructions* Patient Instructions* Sofya Dave, OD - 08/06/2024 2:27 PM EST ASSESSMENT/PLAN: 1. Dry eyes, bilateral - ICD9: 375.15, ICD10: H04.123 (primary diagnosis) Current Ophthalmic Meds propylene glycoL, PF, (SYSTANE COMPLETE PF) 0.6 % drop Use 1 Drop in both eyes four times daily. 2. Floaters, bilateral - ICD9: 379.24, ICD10: H43.393 Signs and symptoms of a retinal tear/detachment (flashes, floaters or change in peripheral vision) were reviewed with the patients. Patient understands they should return or call our office immediately if any of theses symptoms present. 3. Hyperopia, left - ICD9: 367.0, ICD10: H52.02 4. Regular astigmatism, bilateral - ICD9: 367.21, ICD10: H52.223 Continue to wear her glasses with the update. 5. Pseudophakia - ICD9: V43.1, ICD10: Z96.1 Posterior chamber intraocular lenses are well positioned and clear. As for the dizziness, she should work with her PCP Recommended yearly exams. [facility] NoteHNO ID: [id number] Author: SOFYA DAVE OD Service: ? Author Type: PAPER REWINDER OPERATOR Type: Progress Notes Filed: 08/06/2024 14:28 Note Text: ASSESSMENT/PLAN: 1. Dry eyes, bilateral - ICD9: 375.15, ICD10: H04.123 (primary diagnosis) Current Ophthalmic Meds propylene glycoL, PF, (SYSTANE COMPLETE PF) 0.6 % drop Use 1 Drop in both eyes four times daily. 2. Floaters, bilateral - ICD9: 379.24, ICD10: H43.393 Signs and symptoms of a retinal tear/detachment (flashes, floaters or change in peripheral vision) were reviewed with the patients. Patient understands they should return or call our office immediately if any of theses symptoms present. 3. Hyperopia, left - ICD9: 367.0, ICD10: H52.02 4. Regular astigmatism, bilateral - ICD9: 367.21, ICD10: H52.223 Continue to wear her glasses with the update. 5. Pseudophakia - ICD9: V43.1, ICD10: Z96.1 Posterior chamber intraocular lenses are well positioned and clear. Recommended yearly exams. Sofya Dave, OD I have confirmed and edited as necessary the relevant ophthalmic history, ROS, and the neuro exam findings as obtained by others.[facility] 08-06-2024 History of Present illness Narrative* Sofya Dave, OD - 08/06/2024 2:23 PM EST ASSESSMENT/PLAN: 1. Dry eyes, bilateral - ICD9: 375.15, ICD10: H04.123 (primary diagnosis) Current Ophthalmic Meds propylene glycoL, PF, (SYSTANE COMPLETE PF) 0.6 % drop Use 1 Drop in both eyes four times daily. 2. Floaters, bilateral - ICD9: 379.24, ICD10: H43.393 Signs and symptoms of a retinal tear/detachment (flashes, floaters or change in peripheral vision) were reviewed with the patients. Patient understands they should return or call our office immediately if any of theses symptoms present. 3. Hyperopia, left - ICD9: 367.0, ICD10: H52.02 4. Regular astigmatism, bilateral - ICD9: 367.21, ICD10: H52.223 Continue to wear her glasses with the update. 5. Pseudophakia - ICD9: V43.1, ICD10: Z96.1 Posterior chamber intraocular lenses are well positioned and clear. Recommended yearly exams. Sofya Dave, OD I have confirmed and edited as necessary the relevant ophthalmic history, ROS, and the neuro exam findings as obtained by others. documented in this encounterMer[facility] HospitalEvaluation note* Diagnosis Dry eyes, bilateral- Primary Tear film insufficiency, unspecified Floaters, bilateral Hyperopia, left Regular astigmatism, bilateral Pseudophakia Lens replaced by other means documented in this encounter [facility]Reason for referral (narrative)No reason for referral information availableFrancisc[facility] Work Phone: Summary Purpose Family History No Family History Records Found Relationship Condition Age at Onset Recorded Date/T eusebia mother Malignant melanoma Unknown Hypertension Unknown father Malignant neoplasm of prostate Unknown Advance Directives No Advanced Directives Records FoundNo Advanced Directives Records FoundNo Advanced Directives Records FoundNo Advanced Directives Records FoundNo Advanced Directives Records FoundNo Advanced Directives Records FoundNo Advanced Directives Records FoundNo Advanced Directives Records Found Chief Complaint and Reason for Visit Chief Complaint Admit Date TREMORS October 23, 2024 1:0 5pm FOLLOW UP/ MEDICATIONS December 12, 2024 12 :56pm Reason for Visit Admit Date Cerebellar tremor October 23, 2024 1:0 5pm History of stroke October 23, 2024 1:0 5pm Neuropathy of both feet October 23, 2024 1:05pm Cerebellar tremor December 12, 2024 12:56 pm History of stroke December 12, 2024 12:56 pm Neuropathy of both feet December 12, 2024 1 2:56pm Chief Complaint Admit Date TREMORS October 23, 2024 1:0 5pm FOLLOW UP/ MEDICATIONS December 12, 2024 12 :56pm 6 WKS January 23, 2025 1:58 pm Reason for Visit Admit Date Cerebellar tremor October 23, 2024 1:0 5pm History of stroke October 23, 2024 1:0 5pm Neuropathy of both feet October 23, 2024 1:05pm Cerebellar tremor December 12, 2024 12:56 pm History of stroke December 12, 2024 12:56 pm Neuropathy of both feet December 12, 2024 1 2:56pm Cerebellar tremor January 23, 2025 1:58 pm History of stroke January 23, 2025 1:58 pm Neuropathy of both feet January 23, 2025 1:58pm Chief Complaint Admit Date TREMORS October 23, 2024 1:0 5pm FOLLOW UP/ MEDICATIONS December 12, 2024 12 :56pm 6 WKS January 23, 2025 1:58 pm 4 WK February 20, 2025 1: 57pm Reason for Visit Admit Date Cerebellar tremor October 23, 2024 1:0 5pm History of stroke October 23, 2024 1:0 5pm Neuropathy of both feet October 23, 2024 1:05pm Cerebellar tremor December 12, 2024 12:56 pm History of stroke December 12, 2024 12:56 pm Neuropathy of both feet December 12, 2024 1 2:56pm Cerebellar tremor January 23, 2025 1:58 pm History of stroke January 23, 2025 1:58 pm Neuropathy of both feet January 23, 2025 1:58pm Cerebellar tremor February 20, 2025 1: 57pm History of stroke February 20, 2025 1: 57pm Neuropathy of both feet February 20 1:57pm Chief Complaint Admit Date FOLLOW UP/ MEDICATIONS December 12, 2024 12 :56pm 6 WKS January 23, 2025 1:58 pm 4 WK February 20, 2025 1: 57pm 6 WKS March 24, 2025 1:20pm EORDERS March 24, 2025 2:18pm Reason for Visit Admit Date Cerebellar tremor December 12, 2024 12:56 pm History of stroke December 12, 2024 12:56 pm Neuropathy of both feet December 12, 2024 1 2:56pm Cerebellar tremor January 23, 2025 1:58 pm History of stroke January 23, 2025 1:58 pm Neuropathy of both feet January 23, 2025 1:58pm Cerebellar tremor February 20, 2025 1: 57pm History of stroke February 20, 2025 1: 57pm Neuropathy of both feet February 20 1:57pm Ataxic gait March 24, 2025 1:20pm Cerebellar tremor March 24, 2025 1:20pm Generalized headaches March 24 1:20pm History of stroke March 24, 2025 1:20pm Restless leg syndrome March 24 1:20pm Neuropathy of both feet March 24, 2025 1:20pm Additional Source Comments INFORMATION SOURCE (unrecogn ized section and content) DATE CREATED AUTHOR 04/02/2019 [facility] DATE CREATED AUTHOR AUTHOR'S ORGANIZ ATION 04/10/2020 [facility] DATE CREATED AUTHOR AUTHOR'S ORGANIZ ATION 11/23/2020 [employer] DATE CREATED AUTHOR AUTHOR'S ORGANIZ ATION 04/18/2021 [facility] DATE CREATED AUTHOR AUTHOR'S ORGANIZ ATION 09/09/2022 [facility] DATE CREATED AUTHOR AUTHOR'S ORGANIZ ATION 08/08/2024 [facility] DATE CREATED AUTHOR AUTHOR'S ORGANIZ ATION 12/07/2024 [facility] DATE CREATED AUTHOR AUTHOR'S ORGANIZ ATION 04/02/2025 [facility] <item> Privacy Markings (unrecogniz ed section and content) Section Author: Maday Ledezma PROHIBITION ON REDISCLOSURE OF CONFIDENTIAL INFORMATION This notice accompanies a disclosure of information concerning a client made to you with the consent of such client. 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 Christopher Bowens MD Attending Provider Active Start: October 23, 2024 End: October 23, 2024 Team Status: Inactive Member Role Status Dates Christiana Krishnamurthy NP, SUPERVISOR PAPER MACHINE-C Primary Care Provider Active Start: December 12, 2024 End: December 12, 2024 Christiana Krishnamurthy NP, SUPERVISOR PAPER MACHINE-C Referring Provider Active S tart: December 12, 2024 End: December 12, 2024 HO Bonner Attending Provider Active S tart: December 12, 2024 End: December 12, 2024 Team Status: Active Member Role/Relationship Status Dates Christiana Krishnamurthy NP, SUPERVISOR PAPER MACHINE-C Primary Care Provider Active Team Status: Inactive Member Role/Relationship Status Dates Christiana Krishnamurthy NP, SUPERVISOR PAPER MACHINE-C Primary Care Provider Active Start: October 23, 2024 End: October 23, 2024 Christiana Krishnamurthy NP, SUPERVISOR PAPER MACHINE-C Referring Provider Active S tart: October 23, 2024 End: October 23, 2024 Dr. Christopher Bowens MD Attending Provider Active Start: October 23, 2024 End: October 23, 2024 Team Status: Inactive Member Role/Relationship Status Dates Christiana Krishnamurthy NP, SUPERVISOR PAPER MACHINE-C Primary Care Provider Active Start: December 12, 2024 End: December 12, 2024 Christiana Krishnamurthy NP, SUPERVISOR PAPER MACHINE-C Referring Provider Active S tart: December 12, 2024 End: December 12, 2024 HO Bonner Attending Provider Active S tart: December 12, 2024 End: December 12, 2024 Team Status: Inactive Member Role/Relationship Status Dates Christiana Krishnamurthy SUPERVISOR PAPER MACHINE, SUPERVISOR PAPER MACHINE-C Primary Care Provider Active Start: January 23, 2025 End: January 23, 2025 Christiana Krishnamurthy SUPERVISOR PAPER MACHINE, SUPERVISOR PAPER MACHINE-C Referring Provider Active S tart: January 23, 2025 End: January 23, 2025 Julee Bull SUPERVISOR PAPER MACHINE-C Attending Provider Active S tart: January 23, 2025 End: January 23, 2025 Team Status: Inactive Member Role/Relationship Status Dates Christiana Krishnamurthy SUPERVISOR PAPER MACHINE, SUPERVISOR PAPER MACHINE-C Primary Care Provider Active Start: February 20, 2025 End: February 20, 2025 Christiana Krishnamurthy SUPERVISOR PAPER MACHINE, SUPERVISOR PAPER MACHINE-C Referring Provider Active S tart: February 20, 2025 End: February 20, 2025 Julee Bull SUPERVISOR PAPER MACHINE-C Attending Provider Active S tart: February 20, 2025 End: February 20, 2025 Team Status: Inactive Member Role/Relationship Status Dates Christiana Krishnamurthy SUPERVISOR PAPER MACHINE, SUPERVISOR PAPER MACHINE-C Primary Care Provider Active Start: December 12, 2024 End: December 12, 2024 Christiana Krishnamurthy SUPERVISOR PAPER MACHINE, SUPERVISOR PAPER MACHINE-C Referring Provider Active S tart: December 12, 2024 End: December 12, 2024 Julee Bull SUPERVISOR PAPER MACHINE-C Attending Provider Active S tart: December 12, 2024 End: December 12, 2024 Team Status: Inactive Member Role/Relationship Status Dates Christiana Krishnamurthy SUPERVISOR PAPER MACHINE, SUPERVISOR PAPER MACHINE-C Primary Care Provider Active Start: January 23, 2025 End: January 23, 2025 Christiana Krishnamurthy SUPERVISOR PAPER MACHINE, SUPERVISOR PAPER MACHINE-C Referring Provider Active S tart: January 23, 2025 End: January 23, 2025 Julee Bull SUPERVISOR PAPER MACHINE-C Attending Provider Active S tart: January 23, 2025 End: January 23, 2025 Team Status: Inactive Member Role/Relationship Status Dates Christiana Krishnamurthy SUPERVISOR PAPER MACHINE, SUPERVISOR PAPER MACHINE-C Primary Care Provider Active Start: February 20, 2025 End: February 20, 2025 Christiana Krishnamurthy SUPERVISOR PAPER MACHINE, SUPERVISOR PAPER MACHINE-C Referring Provider Active S tart: February 20, 2025 End: February 20, 2025 Julee Bull , SUPERVISOR PAPER MACHINE-C Attending Provider Active S tart: February 20, 2025 End: February 20, 2025 Team Status: Inactive Member Role/Relationship Status Dates Christiana Krishnamurthy NP, SUPERVISOR PAPER MACHINE-C Primary Care Provider Active Start: March 24, 2025 End: March 24, 2025 Christiana Krishnamurthy NP, SUPERVISOR PAPER MACHINE-C Referring Provider Active S tart: March 24, 2025 End: March 24, 2025 Julee Bull NP-Veronica Attending Provider Active S tart: March 24, 2025 End: March 24, 2025 Team Status: Active Member Role/Relationship Status Dates Christiana Krishnamurthy NP, SUPERVISOR PAPER MACHINE-C Primary Care Provider Active Start: March 24, 2025 Dr. Spencer Oliver MD Attending Provider Active Start: March 24, 2025 Dr. Spencer Oliver MD Referring Provider Active Start: March 24, 2025 Goals (unrecognized section and content) Goals may be documented in a n alternate sectionGoals may be documented in an alternate sectionGoals may be documented in an alternate sectionGoals may be documented in an alternate section FOR RECORDS PERTAINING TO PATIENTS WHO ARE OR HAVE BEEN ENROLLED IN A CHEMICAL DEPENDENCY/SUBSTANCEABUSE PROGRAM, SOME INFORMATION MAY BE OMITTED. This clinical summary was aggregated from multiple sources. Caution should be exercised in using it in the provision of clinical care. This summary normalizes information from multiple sources, and as a consequence, information in this document may materially change the coding, format and clinical context of patient data. In addition, data may be omitted in some cases. CLINICAL DECISIONS SHOULD BE BASED ON THE PRIMARY CLINICAL RECORDS. [employer] [facility]. provides no warranty or guarantee of the accuracy or completeness of information in this document.
== END | disposition home or self-care (01) ==
PROVIDERS: PCP Nurse Practitioner Family
DX: G25.2 Other specified forms of tremor (principal); R26.0 Ataxic gait; R51.9 Headache, unspecified; Z86.73 Personal history of transient ischemic attack (TIA), and cerebral infarction without residual deficits
CPT/HCPCS: 70553; A9575